=== PATIENT | male | born 1955 | race Caucasian/White ===

== ENCOUNTER 2020-06-09 12:22 | Inpatient (IN) | payer BC ==
[2020-06-09] MEDS ORDERED: ACETAMINOPHEN 500 MG TAB ONE (12:58)
[2020-06-09] MEDS ORDERED: METHYLPREDNISOLONE 125 MG INJ ONE (12:58)
[2020-06-09] MEDS ORDERED: CEFTRIAXONE/SWI 1gm 1 GM/10 ML SYR ONE (12:59)
[2020-06-09] MEDS ORDERED: NA CHLORIDE 0.9% 3,000 ML ONE (12:59)
[2020-06-09 13:03] LABS: Absolute Lymphocytes (CBC) 0.9 K/uL (0.7-4.9); Hematocrit 39.3 % (39.6-49.0); Lymphocytes % 7.6 % (15.3-44.8); MPV 8.6 fL (7.6-11.3); RBC Red Blood Cell Count 4.47 M/uL (4.33-5.43)
[2020-06-09 13:06] LABS: Protime INR 1.26
[2020-06-09 13:20] LABS: Arterial Blood Carboxyhemoglob 1.5 % (0-1.5); Blood Gas Oxyhemoglobin 91.5 % (94-97); Blood O2 Saturation 93.8 % (92-98.5)
[2020-06-09 13:25] LABS: ALT/SGPT 78 U/L (12-78); AST/SGOT 51 U/L (15-37); Albumin 2.6 g/dL (3.4-5.0); Alkaline Phosphatase 86 U/L (45-117); Amylase 35 U/L (25-115); BUN Blood Urea Nitrogen 16 mg/dL (7-18); Bicarbonate 26 mmol/L (21-32); Bilirubin Direct 0.4 mg/dL (0-0.2); Bilirubin Total 0.9 mg/dL (0.2-1.0); Blood Morphology Comment NOT SEEN (NOT SEEN); CKMB Creatine Kinase MB < 1.0 ng/mL (0.3-3.6); Creatine Phosphokinase 91 U/L (39-308); Glucose Level 322 mg/dL (74-106); Lipase 51 U/L (73-393); Platelet Estimate ADEQ; Potassium 3.8 mmol/L (3.5-5.1); Protein, Total 7.1 g/dL (6.4-8.2); Sodium Level 134 mmol/L (136-145); Troponin (Emerg Dept Use Only) < 0.02 ng/mL (0.0-0.045); White Blood Cell Scan OK (OK)
--- NOTE | 2020-06-09 13:40 | RAD REPORT ---
EXAM DESCRIPTION: [place] Single View06/09/2020 1:26 pm CLINICAL HISTORY: Shortness of breath COMPARISON: none FINDINGS: Moderate bilateral pulmonary opacities. The heart is borderline enlarged IMPRESSION: Moderate bilateral pulmonary opacities probably pneumonia
--- NOTE | 2020-06-09 16:13 | ER ---
Nurse's Notes [facility] Name: Alberto Vega Age: 64 yrs Sex: Male : 1955 Arrival Date: 06/09/2020 Time: 12:24 Bed 3 Private MD: Diagnosis: Pneumonia, unspecified organism;Shortness of breath;Acute respiratory failure with hypoxia Presentation: 06/09 12:29 Chief complaint: EMS states: "COVID + X 1 week. reporting increased shortness of jd3 breath. 46% oxygen on room air and up to upper 80's and low 90's with the non-re breather. diminished lung sounds SABINO. he is also breathing in the upped 20's to 30's as far as respiratory rate. 2 IV attempts that didn't stay.". Coronavirus screen: cough unrelated to allergies, difficulty breathing, fever, Client presents with at least one sign or symptom that may indicate coronavirus-19. Standard/surgical mask placed on the client. Provider contacted for isolation considerations. Ebola Screen: Patient negative for fever greater than or equal to 101.5 degrees Fahrenheit, and additional compatible Ebola Virus Disease symptoms. Initial Sepsis Screen: Does the patient meet any 2 criteria? RR > 20 per min. HR > 90 bpm. Yes Does the patient have a suspected source of infection? Yes: Productive cough/pneumonia. Risk Assessment: Do you want to hurt yourself or someone else? Patient reports no desire to harm self or others. Onset of symptoms was June 09, 2020. 12:29 Method Of Arrival: EMS: [facility] jd3 12:29 Acuity: LUZ 2 jd3 Historical: - Allergies: 12:36 No Known Allergies; jd3 - PMHx: 14:24 cancer; High Cholesterol; jd3 - PSHx: 12:36 None; jd3 - Immunization history:: Adult Immunizations up to date. - Social history:: Smoking status: Patient/guardian denies using tobacco, the patient reports quitting approximately 10 years ago. Screenin:35 Abuse screen: Denies threats or abuse. Nutritional screening: No deficits noted. jd3 Tuberculosis screening:. Fall Risk Ambulatory Aid- None/Bed Rest/Nurse Assist (0 pts). Gait- Normal/Bed Rest/Wheelchair (0 pts) Mental Status- Oriented to own ability (0 pts). Total Forbes Fall Scale indicates No Risk (0-24 pts). Assessment: 12:34 General: Appears uncomfortable, Behavior is calm, cooperative, appropriate for age. jd3 Pain: Denies pain. Neuro: Level of Consciousness is awake, alert, obeys commands, Oriented to person, place, time, situation. Cardiovascular: Denies chest pain, Heart tones present Capillary refill < 3 seconds Patient's skin is warm and dry. Respiratory: Reports shortness of breath at rest cough that is non-productive, persistent Airway is patent Respiratory effort is labored, shallow, Respiratory pattern is symmetrical, tachypnea Breath sounds are diminished bilaterally. GI: No signs and/or symptoms were reported involving the gastrointestinal system. : No signs and/or symptoms were reported regarding the genitourinary system. EENT: No signs and/or symptoms were reported regarding the EENT system. Derm: Skin is intact, Skin is dry, Skin is normal, Skin temperature is warm. Musculoskeletal: Circulation, motion, and sensation intact. Range of motion: intact in all extremities. 13:11 Reassessment: No changes from previously documented assessment. Patient and/or family jd3 updated on plan of care and expected duration. Pain level reassessed. 14:10 Reassessment: Patient and/or family updated on plan of care and expected duration. Pain jd3 level reassessed. Patient states feeling better. Pain: Denies pain. Respiratory: Airway is patent Respiratory effort is even, unlabored, Respiratory pattern is symmetrical, tachypnea. 15:52 Reassessment: No changes from previously documented assessment. Patient and/or family jd3 updated on plan of care and expected duration. Pain level reassessed. Patient states feeling better. 17:21 Reassessment: No changes from previously documented assessment. Patient and/or family jd3 updated on plan of care and expected duration. Pain level reassessed. Patient denies pain at this time. Respiratory: Airway is patent Respiratory effort is unlabored, relaxed, Respiratory pattern is symmetrical, tachypnea. 18:23 Reassessment: Patient appears in no apparent distress at this time. No changes from jd3 previously documented assessment. Patient and/or family updated on plan of care and expected duration. Pain level reassessed. report given to Paula SCHULTE. Vital Signs: 12:33 BP 145 / 71; Pulse 109; Resp 28 S; Temp 103.1(O); Pulse Ox 94% on Non-rebreather mask; jd3 Weight 90.72 kg (R); Height 5 ft. 8 in. (172.72 cm) (R); Pain 0/10; 13:11 BP 124 / 73; Pulse 98; Resp 23 S; Pulse Ox 95% on BiPAP; jd3 14:10 BP 126 / 76; Pulse 80; Resp 25 S; Pulse Ox 98% on BiPAP; jd3 15:51 Pulse 76; Resp 27 S; Temp 97.7(O); Pulse Ox 96% on BiPAP; jd3 17:19 BP 113 / 68; Pulse 76; Resp 28 S; Pulse Ox 95% on BiPAP; jd3 18:25 BP 112 / 67; Pulse 76; Resp 25 S; Pulse Ox 96% on BiPAP; jd3 12:33 Body Mass Index 30.41 (90.72 kg, 172.72 cm) jd3 ED Course: 12:24 Patient arrived in ED. bd 12:27 Gary Crawford MD is Attending Physician. kdr 12:29 Nir Conklin RN is Primary Nurse. jd3 12:33 Triage completed. jd3 12:34 Arm band placed on. EKG completed in triage. Results shown to MD. jd3 12:36 Patient has correct armband on for positive identification. Placed in gown. Bed in low jd3 position. Call light in reach. Side rails up X2. telemetry monitor on. Pulse ox on. NIBP on. 12:45 pt contact number [phone]. bd 13:00 Inserted saline lock: 18 gauge in left antecubital area, using aseptic technique. Blood jd3 collected. placed by [employer]. 13:26 Chest Single View XRAY In Process Unspecified. EDMS 14:45 Basic Metabolic Panel Sent. iw 14:45 Amylase, Serum Sent. iw 16:10 Stan Leonard is Hospitalizing Provider. kdr 16:34 CT Chest For PE Angio In Process Unspecified. EDMS 18:24 No provider procedures requiring assistance completed. Patient admitted, IV remains in jd3 place. Administered Medications: 13:09 Drug: Tylenol 1000 mg Route: PO; jd3 14:00 Follow up: Response: No adverse reaction jd3 13:10 Drug: NS 0.9% (30 ml/kg) 30 ml/kg Route: IV; Rate: bolus; Site: left antecubital; jd3 14:00 Follow up: Response: No adverse reaction; IV Status: Completed infusion jd3 13:10 Drug: Rocephin 1 grams Route: IV; Rate: calculated rate; Site: left antecubital; jd3 14:00 Follow up: Response: No adverse reaction; IV Status: Completed infusion jd3 13:10 Drug: SOLU-Medrol 125 mg Route: IVP; Site: left antecubital; jd3 14:00 Follow up: Response: No adverse reaction jd3 Outcome: 16:12 Decision to Hospitalize by Provider. kdr 18:24 Admitted to Med/surg accompanied by tech, room ICU 6, with oxygen, with chart, Report jd3 called to Paula SCHULTE 18:24 Condition: stable 18:24 Instructed on the need for admit, Demonstrated understanding of instructions. 18:42 Patient left the ED. jd3 Signatures: Dispatcher [employer] EDMS Courtney Connor Kevin, MD MD kdr Imelda Burgos, ERIS RN iw Nir Conklin RN RN jning Corrections: (The following items were deleted from the chart) 14:24 12:36 PMHx: None; jd3 jd3
--- NOTE | 2020-06-09 16:13 | EDPHYS ---
Physician Documentation [facility] Name: Alberto Vega Age: 64 yrs Sex: Male : 1955 Arrival Date: 06/09/2020 Time: 12:24 Bed 3 Private MD: ED Physician Gary Crawford HPI: 06/09 18:14 This 64 yrs old Male presents to ER via EMS with complaints of short of kdr breath and hypoxia. 18:14 The patient has shortness of breath at rest. Onset: The symptoms/episode began/occurred kdr gradually, 1 week(s) ago. Duration: The symptoms are continuous, and are steadily getting worse. The patient's shortness of breath is aggravated by coughing, exertion, light activity. 06/10 08:04 The patient has not experienced similar symptoms in the past. The patient has been kdr recently seen by a physician: the patient's primary care provider. The patient was diagnosed with COVID about a week ago and has in the last few days become increasingly SOB. His had bought a POx device and he claims that prior to EMS arrival, it was reading 37%. EMS reported initial sats in the 50's that improved with oxygen and the patient presented initially with sats in the 80-'s that improved with BiPAP to the 90's. The patient appeared mildly dyspneic on arrival. Historical: - Allergies: 06/09 12:36 No Known Allergies; jd3 - PMHx: 14:24 cancer; High Cholesterol; jd3 - PSHx: 12:36 None; jd3 - Immunization history:: Adult Immunizations up to date. - Social history:: Smoking status: Patient/guardian denies using tobacco, the patient reports quitting approximately 10 years ago. ROS: 06/10 08:04 Constitutional: Negative for fever, chills, and weight loss, Eyes: Negative for injury, kdr pain, redness, and discharge, ENT: Negative for injury, pain, and discharge, Neck: Negative for injury, pain, and swelling, Cardiovascular: Negative for chest pain, palpitations, and edema, Abdomen/GI: Negative for abdominal pain, nausea, vomiting, diarrhea, and constipation, Back: Negative for injury and pain, : Negative for injury, bleeding, discharge, and swelling, MS/Extremity: Negative for injury and deformity, Skin: Negative for injury, rash, and discoloration, Neuro: Negative for headache, weakness, numbness, tingling, and seizure activity. Psych: Negative for depression, anxiety, suicide ideation, homicidal ideation, and hallucinations, Allergy/Immunology: Negative for hives, rash, and allergies, Endocrine: Negative for neck swelling, polydipsia, polyuria, polyphagia, and marked weight changes, Hematologic/Lymphatic: Negative for swollen nodes, abnormal bleeding, and unusual bruising. Respiratory: Positive for dyspnea on exertion, shortness of breath, at rest. Negative for hemoptysis, orthopnea, pleurisy, wheezing. Exam: 06/09 15:52 ECG was reviewed by the Attending Physician. kdr 06/10 08:04 Constitutional: This is a well developed, well nourished patient who is awake, alert, kdr and in mild to moderate distress. Head/Face: Normocephalic, atraumatic. Eyes: Pupils equal round and reactive to light, extra-ocular motions intact. Lids and lashes normal. Conjunctiva and sclera are non-icteric and not injected. Cornea within normal limits. Periorbital areas with no swelling, redness, or edema. Neck: Trachea midline, no thyromegaly or masses palpated, and no cervical lymphadenopathy. Supple, full range of motion without nuchal rigidity, or vertebral point tenderness. No Meningismus. Chest/axilla: Normal chest wall appearance and motion. Nontender with no deformity. No lesions are appreciated. Cardiovascular: Regular rate and rhythm with a normal S1 and S2. No gallops, murmurs, or rubs. Normal PMI, no JVD. No pulse deficits. Respiratory: Lungs have equal breath sounds bilaterally, clear to auscultation and percussion. No rales, rhonchi or wheezes noted. MIld increased work of breathing but no retractions or nasal flaring. Abdomen/GI: Soft, non-tender, with normal bowel sounds. No distension or tympany. No guarding or rebound. No evidence of tenderness throughout. Back: No spinal tenderness. No costovertebral tenderness. Full range of motion. Skin: Warm, dry with normal turgor. Normal color with no rashes, no lesions, and no evidence of cellulitis. MS/ Extremity: Pulses equal, no cyanosis. Neurovascular intact. Full, normal range of motion. Neuro: Awake and alert, GCS 15, oriented to person, place, time, and situation. Cranial nerves II-XII grossly intact. Motor strength 5/5 in all extremities. Sensory grossly intact. Cerebellar exam normal. Normal gait. Psych: Awake, alert, with orientation to person, place and time. Behavior, mood, and affect are within normal limits. Vital Signs: 06/09 12:33 BP 145 / 71; Pulse 109; Resp 28 S; Temp 103.1(O); Pulse Ox 94% on Non-rebreather mask; jd3 Weight 90.72 kg (R); Height 5 ft. 8 in. (172.72 cm) (R); Pain 0/10; 13:11 BP 124 / 73; Pulse 98; Resp 23 S; Pulse Ox 95% on BiPAP; jd3 14:10 BP 126 / 76; Pulse 80; Resp 25 S; Pulse Ox 98% on BiPAP; jd3 15:51 Pulse 76; Resp 27 S; Temp 97.7(O); Pulse Ox 96% on BiPAP; jd3 17:19 BP 113 / 68; Pulse 76; Resp 28 S; Pulse Ox 95% on BiPAP; jd3 18:25 BP 112 / 67; Pulse 76; Resp 25 S; Pulse Ox 96% on BiPAP; jd3 12:33 Body Mass Index 30.41 (90.72 kg, 172.72 cm) jd3 MDM: 16:12 Patient medically screened. kdr 06/10 08:04 Differential diagnosis: Anxiety Reaction asthma, Bronchitis CHF exacerbation. Data kdr reviewed: vital signs, nurses notes, lab test result(s), radiologic studies. Counseling: I had a detailed discussion with the patient and/or guardian regarding: the historical points, exam findings, and any diagnostic results supporting the discharge/admit diagnosis, lab results, radiology results, the need for further work-up and treatment in the hospital. 06/09 12:34 Order name: Amylase, Serum kdr 06/09 12:34 Order name: Basic Metabolic Panel kdr 06/09 12:34 Order name: Blood Culture Adult (2) kdr 06/09 12:34 Order name: CBC with Diff; Complete Time: 14:57 kdr 06/09 12:34 Order name: Ckmb; Complete Time: 14:57 kdr 06/09 12:34 Order name: CPK; Complete Time: 14:57 kdr 02 12:34 Order name: Lactate; Complete Time: 14:57 kdr 02 12:34 Order name: LFT's; Complete Time: 14:57 kdr 02 12:34 Order name: Lipase; Complete Time: 14:57 kdr 02 12:34 Order name: Procalcitonin; Complete Time: 14:57 kdr 02 12:34 Order name: Protime (+inr); Complete Time: 14:57 kdr 06/09 12:34 Order name: Ptt, Activated; Complete Time: 14:57 kdr 02 12:34 Order name: Troponin (emerg Dept Use Only); Complete Time: 14:57 kdr 02 12:34 Order name: Urine Microscopic Only kdr 06/09 12:34 Order name: Chest Single View XRAY; Complete Time: 14:57 kdr 06/09 12:34 Order name: Accucheck; Complete Time: 12:37 kdr 06/09 12:34 Order name: Cardiac monitoring; Complete Time: 12:37 kdr 06/09 12:34 Order name: EKG - Nurse/Tech; Complete Time: 12:38 kdr 06/09 12:34 Order name: BIPAP kdr 06/09 12:34 Order name: Amylase; Complete Time: 14:57 EDMS 06/09 12:34 Order name: Basic Metabolic Panel; Complete Time: 14:57 EDMS 06/09 12:36 Order name: ABG; Complete Time: 14:57 kdr 06/09 13:03 Order name: Glucose, Ancillary Testing; Complete Time: 14:57 EDMS 06/09 13:05 Order name: CBC Smear Scan; Complete Time: 14:57 EDMS 06/09 16:10 Order name: CT Chest For PE Angio kdr 06/09 16:20 Order name: Lactate Sepsis 2 HR Follow-up EDMS 06/09 12:34 Order name: IV Saline Lock - Large Bore; Complete Time: 13:10 kdr 06/09 12:34 Order name: Labs collected and sent; Complete Time: 13:10 kdr 06/09 12:34 Order name: O2 Per Protocol; Complete Time: 12:38 kdr 06/09 12:34 Order name: O2 Sat Monitoring; Complete Time: 12:38 kdr EC/10 15:52 Rate is 100 beats/min. Rhythm is regular, Normal Sinus Rhythm with No ectopy. QRS Butler kdr is Normal. LA interval is normal. QRS interval is normal. QT interval is normal. Clinical impression: NSR w/ Non-specific ST/T Changes. Administered Medications: 13:09 Drug: Tylenol 1000 mg Route: PO; jd3 14:00 Follow up: Response: No adverse reaction jd3 13:10 Drug: NS 0.9% (30 ml/kg) 30 ml/kg Route: IV; Rate: bolus; Site: left antecubital; jd3 14:00 Follow up: Response: No adverse reaction; IV Status: Completed infusion jd3 13:10 Drug: Rocephin 1 grams Route: IV; Rate: calculated rate; Site: left antecubital; jd3 14:00 Follow up: Response: No adverse reaction; IV Status: Completed infusion jd3 13:10 Drug: SOLU-Medrol 125 mg Route: IVP; Site: left antecubital; jd3 14:00 Follow up: Response: No adverse reaction jd3 Disposition: 06/09/20 16:12 Hospitalization ordered by Stan Leonard for Inpatient Admission. Preliminary diagnosis are Pneumonia, unspecified organism, Shortness of breath, Acute respiratory failure with hypoxia. - Bed requested for Intensive Care Unit. - Status is Inpatient Admission. jd3 - Condition is Fair. - Problem is new. - Symptoms have improved. Signatures: Dispatcher [employer] Nieves Garibay RN RN Gary Clark MD MD kdr Davies, Jonathon, RN RN jd3 Corrections: (The following items were deleted from the chart) 14:24 12:36 PMHx: None; jd3 jd3 17:46 16:12 Hospitalization Ordered by Stan Leonard for Inpatient Admission. Preliminary diagnosis is Pneumonia, unspecified organism; Shortness of breath; Acute respiratory failure with hypoxia. Bed requested for Telemetry/MedSurg (Inpatient). Status is Inpatient Admission. Condition is Fair. Problem is new. Symptoms have improved. kdr 18:42 17:46 06/09/2020 16:12 Hospitalization Ordered by Stan Leonard for Inpatient jd3 Admission. Preliminary diagnosis is Pneumonia, unspecified organism; Shortness of breath; Acute respiratory failure with hypoxia. Bed requested for Intensive Care Unit. Status is Inpatient Admission. Condition is Fair. Problem is new. Symptoms have improved. dw
--- NOTE | 2020-06-09 16:46 | RAD REPORT ---
EXAM DESCRIPTION: CT - Chest For Pe Angio - 06/09/2020 4:35 pm CLINICAL HISTORY: cough COMPARISON: X-ray today's date TECHNIQUE: Dynamically enhanced axial 3 mm thick images of the chest were obtained during administra tion of <100> mL Isovue 370 IV contrast. Coronal and oblique reconstruction images were generated and reviewed. Exam utilizes a protocol for optimal evaluation of pulmonary arterial tree. Maximum intensity projections 3D imaging was utilized All CT scans are performed using dose optimization technique as appropriate and may include automated exposure control or mA/KV adjustment according to patient size. FINDINGS: A pulmonary embolus is not seen. A thoracic aortic aneurysm is not noted. A pleural effusion is not seen. A pericardial effusion is not seen. Moderate to marked ground-glass opacities within predominantly lower lobes. Fatty liver IMPRESSION: Negative for a pulmonary embolism. [id number] bilateral ground-glass opacities can be seen with Covid pneumonia
--- NOTE | 2020-06-09 18:04 | P.HP ---
Certification for Inpatient Patient admitted to: Inpatient With expected LOS: >2 Midnights Practitioner: I am a practitioner with admitting privileges, knowledge of patient current condition, hospital course, and medical plan of care. Services: Services provided to patient in accordance with Admission requirements found in Title 42 Section 412.3 of the Code of Federal Regulations Patient History Date of Service: 06/09/20 Reason for admission: Shortness of breath History of Present Illness: 64-year-old gentleman with a history of hyperlipidemia was brought to the emergency department due to acute shortness of breath and low oxygen saturation. According to reports EMS found him with an oxygen saturation of 50%. They placed 100% non-rebreather mask on him and brought him to the ED. His chest x- ray and CTA thorax done in the emergency department demonstrate bilateral infiltrates consistent with COVID pneumonia. Patient tested positive for COVID 1 week ago. Patient placed on BiPAP therapy which improved his oxygen saturation to the 90s. He had mildly elevated lactic acid which resolved with IV hydration. Patient is admitted for further management of COVID pneumonia. - Past Medical/Surgical History Diabetic: No -: Hyperlipidemia -: None - Family History Mother -: Lung disease (Emphysema) - Social History Smoking Status: Former smoker Alcohol use: Yes CD- Drugs: No Place of Residence: Home Review of Systems Other: Patient denied any fever, he denied any chest pain, he denied any nausea or vomiting or abdominal pain or diarrhea. Except as documented, all other systems reviewed and negative. Physical Examination - Physical Exam General: Alert, In no apparent distress, Oriented x3 HEENT: Normocephalic, PERRLA, EOMI, Sclerae nonicteric Neck: Supple, JVD not distended Respiratory: Normal air movement, Crackles/rales (Bilateral) Cardiovascular: No edema, Regular rate/rhythm, Normal S1 S2 Gastrointestinal: Soft and benign, Non-distended, No tenderness Musculoskeletal: No swelling, No tenderness Integumentary: No rashes, No erythema Neurological: Normal speech, Normal strength at 5/5 x4 extr, Cranial nerves 3-12 intact - Studies Laboratory Data (last 24 hrs) 06/09/20 12:48: PT 14.5 H, INR 1.26, APTT 29.1 06/09/20 12:48: WBC 11.30 H, Hgb 13.2 L, Hct 39.3 L, Plt Count 239 06/09/20 12:48: Sodium 134 L, Potassium 3.8, BUN 16, Creatinine 1.10, Glucose 322 H, Total Bilirubin 0.9, AST 51 H, ALT 78, Alkaline Phosphatase 86, Amylase 35, Lipase 51 L Assessment and Plan - Problems (Diagnosis) (1) Pneumonia due to COVID-19 virus Current Visit: Yes Status: Acute (2) Acute respiratory failure with hypoxia Current Visit: Yes Status: Acute (3) Hyperlipidemia Current Visit: Yes Status: Acute (4) Hyperglycemia Current Visit: Yes Status: Acute - Plan Admit to the medical floor. Start IV Solu-Medrol BiPAP and high-flow oxygen as needed. Vitamin-D, vitamin-C, zinc and thiamine supplementation. Eliquis for thromboembolism prophylaxis. Transfuse 1 unit convalescent plasma. Consult to pulmonary Titrate oxygen Check hemoglobin A1c Glucose monitoring. Insulin sliding scale. - Advance Directives Does patient have a Living Will: No Does patient have a Durable POA for Healthcare: No
[2020-06-09] MEDS ORDERED: ONDANSETRON 4 MG/2 ML VIAL IV PRN (18:29)
[2020-06-09] MEDS ORDERED: DIPHENHYDRAMINE 50 MG/ML VIAL IV ONE (18:29)
[2020-06-09] MEDS ORDERED: DIPHENHYDRAMINE 25 MG TAB/CAP PO ONE (18:29)
[2020-06-09] MEDS ORDERED: NA CHLORIDE 0.9% 250 ML IV ONE (18:29)
[2020-06-09] MEDS: METHYLPREDNISOLONE 125 MG INJ IV SCH (20:11)
[2020-06-09] MEDS: FAMOTIDINE 20 MG/2 ML VIAL IV SCH (20:11)
[2020-06-09] MEDS: APIXABAN 5 MG TABLET PO SCH (20:12)
[2020-06-10 05:40] LABS: Protime INR 1.33
[2020-06-10 05:55] LABS: Absolute Lymphocytes (CBC) 1.1 K/uL (0.7-4.9); Basophils % 0.1 % (0-1.3); Hematocrit 38.8 % (39.6-49.0); Lymphocytes % 11.9 % (15.3-44.8); MPV 8.4 fL (7.6-11.3); RBC Red Blood Cell Count 4.35 M/uL (4.33-5.43)
[2020-06-10 06:04] LABS: ALT/SGPT 68 U/L (12-78); AST/SGOT 39 U/L (15-37); Albumin 2.3 g/dL (3.4-5.0); Alkaline Phosphatase 85 U/L (45-117); BUN Blood Urea Nitrogen 16 mg/dL (7-18); Bicarbonate 24 mmol/L (21-32); Bilirubin Total 0.4 mg/dL (0.2-1.0); Ferritin 1716.7 ng/mL (26-388); Glucose Level 223 mg/dL (74-106); HDL Cholesterol 40 mg/dL (40-60); LDL Cholesterol, Calculated 62 (<130); Magnesium 2.4 mg/dL (1.8-2.4); Phosphorus 2.2 mg/dL (2.5-4.9); Protein, Total 6.9 g/dL (6.4-8.2); Sodium Level 140 mmol/L (136-145)
--- NOTE | 2020-06-10 08:25 | P.CNS ---
Date of Consult: 06/10/20 Reason for Consult: Respiratory failure from dorman virus Chief Complaint: Shortness of breath History of Present Illness: Patient is 64 years of age admitted with worsening shortness of breath is been sick for about 1 week for with dorman virus his oxygen requirements have been declining is feeling a little better Allergies No Known Allergies Allergy (Verified 06/09/20 18:28) Home Medications: Finasteride [Proscar] 5 mg PO DAILY 06/09/20 Rosuvastatin [Crestor] 10 mg PO BEDTIME 06/09/20 - Past Medical/Surgical History Diabetic: No -: Hyperlipidemia -: prostate nonaggressive -: neck surgery - Family History Mother Medical History: Lung disease Father Medical History: Cancer, Liver disease - Social History Alcohol use: Yes CD- Drugs: No Caffeine use: Yes Place of Residence: Home Review of Systems General: Weakness Respiratory: Cough, Shortness of Breath Physical Examination Temp Pulse Resp BP Pulse Ox 97.2 F 65 30 H 111/63 90 L 06/10/20 04:00 06/10/20 06:00 06/10/20 06:00 06/10/20 06:00 06/10/20 06:00 Laboratory Data (last 24 hrs) 06/09/20 12:48: PT 14.5 H, INR 1.26, APTT 29.1 06/09/20 12:48: WBC 11.30 H, Hgb 13.2 L, Hct 39.3 L, Plt Count 239 06/09/20 12:48: Sodium 134 L, Potassium 3.8, BUN 16, Creatinine 1.10, Glucose 322 H, Total Bilirubin 0.9, AST 51 H, ALT 78, Alkaline Phosphatase 86, Amylase 35, Lipase 51 L - Problems (1) Pneumonia due to COVID-19 virus Current Visit: Yes Status: Acute Plan: Patient is 64 years of age admitted with respiratory failure secondary to dorman virus labs all reviewed start patient on ivermectin continue to wean down on the oxygen prone position ventilation continue with steroid multi vitamin support
[2020-06-10] MEDS: METHYLPREDNISOLONE 125 MG INJ IV SCH ×2 (08:38→20:16)
[2020-06-10] MEDS: VITAMIN D 1000 UNIT TAB PO SCH (08:39)
[2020-06-10] MEDS: ASCORBIC ACID 500 MG TABLET PO SCH ×3 (08:39→20:16)
[2020-06-10] MEDS: ZINC SULFATE 220 MG CAP PO SCH (08:40)
[2020-06-10] MEDS: THIAMINE HCL 100 MG TABLET PO SCH ×2 (08:40→20:16)
[2020-06-10] MEDS: FAMOTIDINE 20 MG/2 ML VIAL IV SCH ×2 (08:41→20:17)
[2020-06-10] MEDS: APIXABAN 5 MG TABLET PO SCH ×2 (08:41→20:16)
[2020-06-10] MEDS: POTASS/SODIUM PHOSPHATE 1 PKT POWD.PACK PO SCH ×3 (08:41→11:07)
[2020-06-10] MEDS: IVERMECTIN 3 MG TABLET PO SCH (09:00)
--- NOTE | 2020-06-10 12:34 | P.PN ---
Subjective Date of Service: 06/10/20 Chief Complaint: Shortness of breath Patient currently on alternate high-flow oxygen and BiPAP Status post Ivermectin. Physical Examination - Vital Signs Temperature: 97.2 F Blood Pressure: 112/75 Pulse: 68 Respirations: 21 Pulse Ox (%): 89 - Physical Exam General: Alert, Oriented x3, Mild distress Neck: JVD not distended Cardiovascular: No edema, Regular rate/rhythm, Normal S1 S2 Gastrointestinal: Soft and benign, Non-distended Musculoskeletal: No swelling Integumentary: No rashes Neurological: Other (No focal motor deficit) - Studies Laboratory Data (last 24 hrs) 06/09/20 12:48: PT 14.5 H, INR 1.26, APTT 29.1 06/09/20 12:48: WBC 11.30 H, Hgb 13.2 L, Hct 39.3 L, Plt Count 239 06/09/20 12:48: Sodium 134 L, Potassium 3.8, BUN 16, Creatinine 1.10, Glucose 322 H, Total Bilirubin 0.9, AST 51 H, ALT 78, Alkaline Phosphatase 86, Amylase 35, Lipase 51 L Assessment And Plan - Current Problems (Diagnosis) (1) Pneumonia due to COVID-19 virus Current Visit: Yes Status: Acute (2) Acute respiratory failure with hypoxia Current Visit: Yes Status: Acute (3) Hyperlipidemia Current Visit: Yes Status: Acute (4) Hyperglycemia Current Visit: Yes Status: Acute - Plan Continue IV Solu-Medrol BiPAP and high-flow oxygen as needed. Vitamin-D, vitamin-C, zinc and thiamine supplementation. Continue Eliquis Status post 1 unit convalescent plasma. Pulmonary input appreciated. Titrate oxygen Check hemoglobin A1c Glucose monitoring. Insulin sliding scale.
[2020-06-10] MEDS ORDERED: D50W 25 GM/50 ML SYRINGE IV PRN (18:44)
[2020-06-10] MEDS ORDERED: GLUCAGON 1 MG/VIAL IM PRN (18:44)
[2020-06-10] MEDS: INSULIN -REGULAR HUMAN 50 UNIT/0.5 ML ML SQ SCH (20:17)
[2020-06-11 06:30] LABS: BUN Blood Urea Nitrogen 26 mg/dL (7-18); Bicarbonate 29 mmol/L (21-32); Glucose Level 169 mg/dL (74-106); Phosphorus 3.3 mg/dL (2.5-4.9); Potassium 4.2 mmol/L (3.5-5.1); Sodium Level 145 mmol/L (136-145)
[2020-06-11 06:31] LABS: Ferritin 2156.5 ng/mL (26-388)
[2020-06-11] MEDS: VITAMIN D 1000 UNIT TAB PO SCH (08:17)
[2020-06-11] MEDS: ZINC SULFATE 220 MG CAP PO SCH (08:17)
[2020-06-11] MEDS: THIAMINE HCL 100 MG TABLET PO SCH ×2 (08:17→20:40)
[2020-06-11] MEDS: METHYLPREDNISOLONE 125 MG INJ IV SCH ×2 (08:18→20:39)
[2020-06-11] MEDS: ASCORBIC ACID 500 MG TABLET PO SCH ×3 (08:18→20:40)
[2020-06-11] MEDS: INSULIN -REGULAR HUMAN 50 UNIT/0.5 ML ML SQ SCH ×4 (08:18→20:38)
[2020-06-11] MEDS: FAMOTIDINE 20 MG/2 ML VIAL IV SCH ×2 (08:18→20:38)
[2020-06-11] MEDS: APIXABAN 5 MG TABLET PO SCH ×2 (09:11→20:37)
[2020-06-11] MEDS ORDERED: D50W 25 GM/50 ML VIAL IV PRN ×2 (12:00→15:43)
[2020-06-11] MEDS ORDERED: GLUCAGON 1 MG/VIAL IM PRN (15:33)
--- NOTE | 2020-06-11 15:34 | P.PN ---
Subjective Date of Service: 06/11/20 Chief Complaint: Respiratory failure Subjective: Improving (Patient is improving oxygen requirements are declined) Review of Systems General: Weakness Respiratory: Shortness of Breath Physical Examination - Vital Signs Temperature: 98.2 F Blood Pressure: 123/65 Pulse: 63 Respirations: 34 Pulse Ox (%): 96 Assessment & Plan - Problems (Diagnosis) (1) Pneumonia due to COVID-19 virus Current Visit: Yes Status: Acute Plan: Respiratory failure from dorman virus continue with present medications continue to titrate O2 down to sat of 88-90% at some NPH insulin
--- NOTE | 2020-06-11 17:03 | P.PN ---
Subjective Date of Service: 06/11/20 Chief Complaint: Respiratory failure Patient currently on alternate high-flow oxygen and BiPAP No major changes from yesterday. Physical Examination - Vital Signs Temperature: 97.9 F Blood Pressure: 127/78 Pulse: 61 Respirations: 25 Pulse Ox (%): 92 - Physical Exam General: Alert, In no apparent distress, Oriented x3 Neck: JVD not distended Cardiovascular: No edema, Regular rate/rhythm Gastrointestinal: Soft and benign, Non-distended Musculoskeletal: No swelling Integumentary: No rashes Neurological: Other (No focal motor deficit) Assessment And Plan - Current Problems (Diagnosis) (1) Pneumonia due to COVID-19 virus Current Visit: Yes Status: Acute (2) Acute respiratory failure with hypoxia Current Visit: Yes Status: Acute (3) Hyperlipidemia Current Visit: Yes Status: Acute (4) Hyperglycemia Current Visit: Yes Status: Acute - Plan Continue IV Solu-Medrol BiPAP and high-flow oxygen as needed. Vitamin-D, vitamin-C, zinc and thiamine supplementation. Continue Eliquis Status post 1 unit convalescent plasma. Pulmonary input appreciated. Titrate oxygen Insulin sliding scale for glucose management.
[2020-06-11] MEDS: INSULIN 70/30 100 UNITS/ML SQ SCH (17:28)
[2020-06-12] MEDS: INSULIN -REGULAR HUMAN 50 UNIT/0.5 ML ML SQ SCH ×4 (07:30→21:20)
[2020-06-12] MEDS: ASCORBIC ACID 500 MG TABLET PO SCH ×3 (08:52→21:19)
[2020-06-12] MEDS: THIAMINE HCL 100 MG TABLET PO SCH ×2 (08:52→21:19)
[2020-06-12] MEDS: VITAMIN D 1000 UNIT TAB PO SCH (08:52)
[2020-06-12] MEDS: METHYLPREDNISOLONE 125 MG INJ IV SCH ×2 (08:52→21:20)
[2020-06-12] MEDS: ZINC SULFATE 220 MG CAP PO SCH (08:53)
[2020-06-12] MEDS: APIXABAN 5 MG TABLET PO SCH ×2 (08:54→21:19)
[2020-06-12] MEDS: IVERMECTIN 3 MG TABLET PO SCH (08:54)
[2020-06-12] MEDS: FAMOTIDINE 20 MG/2 ML VIAL IV SCH ×2 (08:54→21:20)
[2020-06-12] MEDS: INSULIN 70/30 100 UNITS/ML SQ SCH ×2 (08:59→16:57)
--- NOTE | 2020-06-12 10:48 | P.PN ---
Subjective Date of Service: 06/12/20 Chief Complaint: Respiratory failure Patient remain on high-flow. Vitals stable. No major changes from yesterday. Physical Examination - Vital Signs Temperature: 98.2 F Blood Pressure: 120/81 Pulse: 74 Respirations: 27 Pulse Ox (%): 88 - Physical Exam General: Alert, In no apparent distress, Oriented x3 Neck: JVD not distended Cardiovascular: No edema, Regular rate/rhythm Gastrointestinal: Soft and benign, Non-distended Musculoskeletal: No swelling Integumentary: No rashes Neurological: Other (No focal motor deficits) Assessment And Plan - Current Problems (Diagnosis) (1) Pneumonia due to COVID-19 virus Current Visit: Yes Status: Acute (2) Acute respiratory failure with hypoxia Current Visit: Yes Status: Acute (3) Hyperlipidemia Current Visit: Yes Status: Acute (4) Hyperglycemia Current Visit: Yes Status: Acute - Plan Continue IV Solu-Medrol BiPAP and high-flow oxygen as needed. Vitamin-D, vitamin-C, zinc and thiamine supplementation. Continue Eliquis Status post 1 unit convalescent plasma. Pulmonary is following. Titrate oxygen Insulin sliding scale for glucose management.
[2020-06-13 05:11] LABS: Absolute Lymphocytes (CBC) 1.1 K/uL (0.7-4.9); Hematocrit 37.4 % (39.6-49.0); Lymphocytes % 8.9 % (15.3-44.8); MPV 8.5 fL (7.6-11.3); RBC Red Blood Cell Count 4.25 M/uL (4.33-5.43)
[2020-06-13 05:24] LABS: BUN Blood Urea Nitrogen 27 mg/dL (7-18); Bicarbonate 29 mmol/L (21-32); Glucose Level 126 mg/dL (74-106); Potassium 4.5 mmol/L (3.5-5.1); Sodium Level 144 mmol/L (136-145)
[2020-06-13 05:54] LABS: C-Reactive Protein 80.6 mg/L (<3.00); Ferritin 1575.8 ng/mL (26-388)
[2020-06-13] MEDS: INSULIN -REGULAR HUMAN 50 UNIT/0.5 ML ML SQ SCH ×4 (07:30→21:24)
[2020-06-13] MEDS: METHYLPREDNISOLONE 125 MG INJ IV SCH ×2 (07:46→21:25)
[2020-06-13] MEDS: ASCORBIC ACID 500 MG TABLET PO SCH ×3 (07:46→21:26)
[2020-06-13] MEDS: VITAMIN D 1000 UNIT TAB PO SCH (07:46)
[2020-06-13] MEDS: ZINC SULFATE 220 MG CAP PO SCH (07:46)
[2020-06-13] MEDS: FAMOTIDINE 20 MG/2 ML VIAL IV SCH (07:46)
[2020-06-13] MEDS: INSULIN 70/30 100 UNITS/ML SQ SCH ×2 (07:46→17:09)
[2020-06-13] MEDS: THIAMINE HCL 100 MG TABLET PO SCH ×2 (07:46→21:26)
[2020-06-13] MEDS: APIXABAN 5 MG TABLET PO SCH ×2 (08:22→21:26)
--- NOTE | 2020-06-13 10:31 | P.PN ---
Subjective Date of Service: 06/13/20 Chief Complaint: Respiratory failure Patient remain on high-flow. No new complain. Physical Examination - Vital Signs Temperature: 97.5 F Blood Pressure: 122/59 Pulse: 77 Respirations: 17 Pulse Ox (%): 83 - Physical Exam General: Alert, In no apparent distress Neck: JVD not distended Cardiovascular: No edema, Regular rate/rhythm Gastrointestinal: Soft and benign, Non-distended Musculoskeletal: No swelling Integumentary: No rashes Neurological: Other (No focal motor deficit.) Assessment And Plan - Current Problems (Diagnosis) (1) Pneumonia due to COVID-19 virus Current Visit: Yes Status: Acute (2) Acute respiratory failure with hypoxia Current Visit: Yes Status: Acute (3) Hyperlipidemia Current Visit: Yes Status: Acute (4) Hyperglycemia Current Visit: Yes Status: Acute - Plan Continue IV Solu-Medrol BiPAP and high-flow oxygen as needed. Vitamin-D, vitamin-C, zinc and thiamine supplementation. Continue Eliquis Status post 1 unit convalescent plasma. Insulin sliding scale for glucose management. Blood glucose readings within acceptable range.
--- NOTE | 2020-06-13 11:08 | P.PN ---
Subjective Date of Service: 06/13/20 Chief Complaint: Respiratory failure Condition stable will continues to remain hypoxic Review of Systems General: Weakness Respiratory: Shortness of Breath Physical Examination - Vital Signs Temperature: 97.5 F Blood Pressure: 122/59 Pulse: 77 Respirations: 17 Pulse Ox (%): 83 Assessment & Plan - Problems (Diagnosis) (1) Pneumonia due to COVID-19 virus Current Visit: Yes Status: Acute Plan: Respiratory failure continue to wean down on the oxygen blood sugars controlled no change in treatment labs reviewed
[2020-06-13] MEDS ORDERED: Remdesivir 200 MG in NA CHLORIDE 0.9% 250 ML IV ONE (14:00)
[2020-06-13] MEDS: FAMOTIDINE 20 MG TAB PO SCH (21:26)
[2020-06-14 05:43] LABS: ALT/SGPT 77 U/L (12-78); AST/SGOT 46 U/L (15-37); Alkaline Phosphatase 110 U/L (45-117); Bilirubin Direct 0.3 mg/dL (0-0.2); Bilirubin Total 0.8 mg/dL (0.2-1.0); Ferritin 1767.3 ng/mL (26-388); Protein, Total 6.1 g/dL (6.4-8.2)
[2020-06-14] MEDS: INSULIN -REGULAR HUMAN 50 UNIT/0.5 ML ML SQ SCH ×4 (07:30→20:23)
[2020-06-14] MEDS: ASCORBIC ACID 500 MG TABLET PO SCH ×3 (09:32→20:23)
[2020-06-14] MEDS: THIAMINE HCL 100 MG TABLET PO SCH ×2 (09:32→20:23)
[2020-06-14] MEDS: VITAMIN D 1000 UNIT TAB PO SCH (09:32)
[2020-06-14] MEDS: APIXABAN 5 MG TABLET PO SCH ×2 (09:33→20:23)
[2020-06-14] MEDS: ZINC SULFATE 220 MG CAP PO SCH (09:33)
[2020-06-14] MEDS: INSULIN 70/30 100 UNITS/ML SQ SCH ×2 (09:33→16:42)
[2020-06-14] MEDS: FAMOTIDINE 20 MG TAB PO SCH ×2 (09:33→20:23)
[2020-06-14] MEDS: METHYLPREDNISOLONE 125 MG INJ IV SCH ×2 (09:34→20:22)
--- NOTE | 2020-06-14 12:02 | P.PN ---
Subjective Date of Service: 06/14/20 Chief Complaint: Respiratory failure Patient remain on high-flow. No new complain. No major changes from yesterday. Physical Examination - Vital Signs Temperature: 97 F Blood Pressure: 127/69 Pulse: 70 Respirations: 23 Pulse Ox (%): 87 - Physical Exam General: Alert, In no apparent distress Neck: JVD not distended Respiratory: Other (Nonlabored breathing) Cardiovascular: Regular rate/rhythm, Normal S1 S2 Gastrointestinal: Soft and benign, Non-distended Musculoskeletal: No swelling Integumentary: No rashes Neurological: Other (No focal motor deficit.) Assessment And Plan - Current Problems (Diagnosis) (1) Pneumonia due to COVID-19 virus Current Visit: Yes Status: Acute (2) Acute respiratory failure with hypoxia Current Visit: Yes Status: Acute (3) Hyperlipidemia Current Visit: Yes Status: Acute (4) Hyperglycemia Current Visit: Yes Status: Acute (5) BPH (benign prostatic hyperplasia) Current Visit: Yes Status: Acute - Plan Continue IV Solu-Medrol BiPAP and high-flow oxygen as needed. Patient started on Remdesivir Vitamin-D, vitamin-C, zinc and thiamine supplementation. Continue Eliquis Status post 1 unit convalescent plasma. Insulin sliding scale for glucose management. Blood glucose readings within acceptable range. Continue Proscar.
[2020-06-14] MEDS: Remdesivir 100 MG in NA CHLORIDE 0.9% 250 ML IV SCH (14:03)
[2020-06-14] MEDS: FINASTERIDE 5 MG TAB PO SCH (14:35)
--- NOTE | 2020-06-14 15:49 | P.PN ---
Subjective Date of Service: 06/14/20 Chief Complaint: Respiratory failure Feeling better . O2 requiements declining Physical Examination - Vital Signs Temperature: 97 F Blood Pressure: 120/70 Pulse: 73 Respirations: 25 Pulse Ox (%): 87 - Studies Microbiology Data (last 24 hrs): 06/09/20 12:48 Blood - Blood Aerobic Blood Culture - Final No growth in 5 days. 06/09/20 12:48 Blood - Blood Anaerobic Blood Culture - Final No growth in 5 days. 06/09/20 12:50 Blood - Blood Aerobic Blood Culture - Final No growth in 5 days. 06/09/20 12:50 Blood - Blood Anaerobic Blood Culture - Final No growth in 5 days. Assessment & Plan - Problems (Diagnosis) (1) Pneumonia due to COVID-19 virus Current Visit: Yes Status: Acute Plan: Resp failure improving labs reviewed.No change in [place]
[2020-06-15 05:25] LABS: Absolute Lymphocytes (CBC) 0.7 K/uL (0.7-4.9); Basophils % 0.1 % (0-1.3); Hematocrit 35.9 % (39.6-49.0); MPV 8.7 fL (7.6-11.3); RBC Red Blood Cell Count 4.12 M/uL (4.33-5.43)
[2020-06-15 05:50] LABS: Blood Morphology Comment NOT SEEN (NOT SEEN); Platelet Estimate ADEQ
[2020-06-15 06:04] LABS: ALT/SGPT 64 U/L (12-78); AST/SGOT 28 U/L (15-37); Alkaline Phosphatase 94 U/L (45-117); BUN Blood Urea Nitrogen 26 mg/dL (7-18); Bicarbonate 28 mmol/L (21-32); Bilirubin Direct 0.3 mg/dL (0-0.2); Bilirubin Total 0.7 mg/dL (0.2-1.0); Ferritin 1906.9 ng/mL (26-388); Glucose Level 155 mg/dL (74-106); Potassium 4.7 mmol/L (3.5-5.1); Protein, Total 5.9 g/dL (6.4-8.2); Sodium Level 143 mmol/L (136-145)
[2020-06-15] MEDS: INSULIN -REGULAR HUMAN 50 UNIT/0.5 ML ML SQ SCH ×4 (08:42→20:11)
[2020-06-15] MEDS: INSULIN 70/30 100 UNITS/ML SQ SCH ×2 (08:43→17:24)
[2020-06-15] MEDS: METHYLPREDNISOLONE 125 MG INJ IV SCH ×2 (08:44→20:10)
[2020-06-15] MEDS: ASCORBIC ACID 500 MG TABLET PO SCH ×3 (08:45→20:11)
[2020-06-15] MEDS: ZINC SULFATE 220 MG CAP PO SCH (08:45)
[2020-06-15] MEDS: FAMOTIDINE 20 MG TAB PO SCH ×2 (08:45→20:11)
[2020-06-15] MEDS: THIAMINE HCL 100 MG TABLET PO SCH ×2 (08:45→20:11)
[2020-06-15] MEDS: FINASTERIDE 5 MG TAB PO SCH (08:45)
[2020-06-15] MEDS: APIXABAN 5 MG TABLET PO SCH ×2 (08:45→20:11)
[2020-06-15] MEDS: VITAMIN D 1000 UNIT TAB PO SCH (08:45)
--- NOTE | 2020-06-15 12:12 | P.PN ---
Subjective Date of Service: 06/15/20 Chief Complaint: Respiratory failure Subjective: No new changes (remains on HFNC, reports doing ok, tolerated diet, without new complaints today) Review of Systems 10-point ROS is otherwise unremarkable Physical Examination - Vital Signs Temperature: 97.1 F Blood Pressure: 124/74 Pulse: 75 Respirations: 27 Pulse Ox (%): 98 - Studies Microbiology Data (last 24 hrs): 06/09/20 12:48 Blood - Blood Aerobic Blood Culture - Final No growth in 5 days. 06/09/20 12:48 Blood - Blood Anaerobic Blood Culture - Final No growth in 5 days. 06/09/20 12:50 Blood - Blood Aerobic Blood Culture - Final No growth in 5 days. 06/09/20 12:50 Blood - Blood Anaerobic Blood Culture - Final No growth in 5 days. Assessment & Plan Physician Review Additional Text: Physical Exam: Gen: Alert, In no apparent distress Pulm: nonlabored breathing, on HFNC Cardiovascular: Regular rate/rhythm, no edema Gastrointestinal: Soft and benign, Non-distended Musculoskeletal: No swelling / no tenderness Integumentary: No rashes Problem List: Pneumonia due to COVID-19 virus Acute respiratory failure with hypoxia Hyperlipidemia Hyperglycemia BPH Continue IV Solu-Medrol, 80 BID, ferritin / CRP remain elevated continue high-flow oxygen as needed, refused BIPAP. Pulm following. continue remdesevir. s/p 1u Convalescent plasma Vitamin-D, vitamin-C, zinc and thiamine supplementation. Continue Eliquis Insulin sliding scale for glucose management. 70/30 10 U BID. Glc mostly < 200, continue to monitor closely Continue Proscar VTE: eliquis Code: full Dispo: anticipate hospitalization > 2 more days, will need home O2 Time Spent Managing Pts Care (In Minutes): 35
[2020-06-15] MEDS: Remdesivir 100 MG in NA CHLORIDE 0.9% 250 ML IV SCH (14:35)
[2020-06-16 05:32] LABS: ALT/SGPT 66 U/L (12-78); AST/SGOT 32 U/L (15-37); Albumin 2.1 g/dL (3.4-5.0); Alkaline Phosphatase 101 U/L (45-117); BUN Blood Urea Nitrogen 28 mg/dL (7-18); Bicarbonate 28 mmol/L (21-32); Bilirubin Direct 0.3 mg/dL (0-0.2); Bilirubin Total 0.9 mg/dL (0.2-1.0); Ferritin 1930.9 ng/mL (26-388); Glucose Level 139 mg/dL (74-106); Magnesium 2.4 mg/dL (1.8-2.4); Phosphorus 3.4 mg/dL (2.5-4.9); Potassium 4.7 mmol/L (3.5-5.1); Protein, Total 6.2 g/dL (6.4-8.2); Sodium Level 144 mmol/L (136-145)
[2020-06-16] MEDS: INSULIN -REGULAR HUMAN 50 UNIT/0.5 ML ML SQ SCH ×4 (07:30→21:04)
--- NOTE | 2020-06-16 07:38 | RAD REPORT ---
EXAM DESCRIPTION: [place] Single View06/16/2020 7:00 am CLINICAL HISTORY: Hypoxia COMPARISON: March 2010 FINDINGS: Mild to moderate worsening in left and no significant change in right pulmonary opacities . The heart remains enlarged IMPRESSION: Mild to moderate worsening in left and no significant change in right pulmonary opacitie s likely pneumonia
[2020-06-16] MEDS: ZINC SULFATE 220 MG CAP PO SCH (07:51)
[2020-06-16] MEDS: ASCORBIC ACID 500 MG TABLET PO SCH ×3 (07:51→21:05)
[2020-06-16] MEDS: METHYLPREDNISOLONE 125 MG INJ IV SCH ×2 (07:51→21:03)
[2020-06-16] MEDS: VITAMIN D 1000 UNIT TAB PO SCH (07:51)
[2020-06-16] MEDS: INSULIN 70/30 100 UNITS/ML SQ SCH ×2 (07:51→16:38)
[2020-06-16] MEDS: FAMOTIDINE 20 MG TAB PO SCH ×2 (07:52→21:05)
[2020-06-16] MEDS: THIAMINE HCL 100 MG TABLET PO SCH ×2 (07:52→21:05)
[2020-06-16] MEDS: FINASTERIDE 5 MG TAB PO SCH (07:52)
[2020-06-16] MEDS: APIXABAN 2.5 MG TABLET PO SCH ×2 (08:17→21:05)
--- NOTE | 2020-06-16 13:05 | P.PN ---
Subjective Date of Service: 06/15/20 Chief Complaint: Respiratory failure Patient is feeling better is improving still having significant desaturation Review of Systems General: Weakness Respiratory: Shortness of Breath Physical Examination - Vital Signs Temperature: 98.2 F Blood Pressure: 125/60 Pulse: 82 Respirations: 26 Pulse Ox (%): 75 Assessment & Plan - Problems (Diagnosis) (1) Pneumonia due to COVID-19 virus Current Visit: Yes Status: Acute Plan: Respiratory failure continue to titrate FiO2 down to 88-90% as very alert cooperative eating and drinking well repeat another dose of ivermectin labs reviewed vital signs stable
[2020-06-16] MEDS ORDERED: IVERMECTIN 3 MG TABLET PO ONE (13:30)
[2020-06-16] MEDS: Remdesivir 100 MG in NA CHLORIDE 0.9% 250 ML IV SCH (14:00)
--- NOTE | 2020-06-16 15:57 | P.PN ---
Subjective Date of Service: 06/16/20 Chief Complaint: Respiratory failure Subjective: Improving (feels a little better, frustrated with slow progress, eating ok, wanting to sit up to chair today) Review of Systems 10-point ROS is otherwise unremarkable Physical Examination - Vital Signs Temperature: 98.2 F Blood Pressure: 111/76 Pulse: 79 Respirations: 25 Pulse Ox (%): 91 Assessment & Plan Physician Review Additional Text: Physical Exam: Gen: Alert, In no apparent distress Pulm: nonlabored breathing, on HFNC Cardiovascular: Regular rate/rhythm, no edema Gastrointestinal: Soft and benign, Non-distended Musculoskeletal: No swelling / no tenderness Integumentary: No rashes Problem List: Pneumonia due to COVID-19 virus Acute respiratory failure with hypoxia Hyperlipidemia Hyperglycemia BPH Continue IV Solu-Medrol, 80 BID, ferritin / CRP remain elevated continue HFNC, refused BIPAP. Pulm following. continue remdesevir. s/p 1u Convalescent plasma Vitamin-D, vitamin-C, zinc and thiamine supplementation. Continue Eliquis Insulin sliding scale for glucose management. 70/30 10 U BID. Glc mostly < 200, continue to monitor closely Continue Proscar VTE: eliquis Code: full Dispo: anticipate hospitalization > 2 more days, will need home O2 Time Spent Managing Pts Care (In Minutes): 35
[2020-06-17 05:18] LABS: ALT/SGPT 70 U/L (12-78); AST/SGOT 34 U/L (15-37); Albumin 1.9 g/dL (3.4-5.0); Alkaline Phosphatase 94 U/L (45-117); BUN Blood Urea Nitrogen 30 mg/dL (7-18); Bicarbonate 30 mmol/L (21-32); Bilirubin Direct 0.2 mg/dL (0-0.2); Bilirubin Total 0.7 mg/dL (0.2-1.0); Ferritin 1726.4 ng/mL (26-388); Glucose Level 145 mg/dL (74-106); Magnesium 2.3 mg/dL (1.8-2.4); Phosphorus 4.2 mg/dL (2.5-4.9); Potassium 5.2 mmol/L (3.5-5.1); Protein, Total 5.6 g/dL (6.4-8.2); Sodium Level 143 mmol/L (136-145)
[2020-06-17] MEDS: INSULIN -REGULAR HUMAN 50 UNIT/0.5 ML ML SQ SCH ×4 (07:30→20:10)
[2020-06-17] MEDS: FINASTERIDE 5 MG TAB PO SCH (08:52)
[2020-06-17] MEDS: METHYLPREDNISOLONE 125 MG INJ IV SCH ×2 (08:52→20:09)
[2020-06-17] MEDS: APIXABAN 2.5 MG TABLET PO SCH ×2 (08:52→20:12)
[2020-06-17] MEDS: VITAMIN D 1000 UNIT TAB PO SCH (08:53)
[2020-06-17] MEDS: ASCORBIC ACID 500 MG TABLET PO SCH ×3 (08:54→20:11)
[2020-06-17] MEDS: ZINC SULFATE 220 MG CAP PO SCH (08:54)
[2020-06-17] MEDS: FAMOTIDINE 20 MG TAB PO SCH ×2 (08:54→20:11)
[2020-06-17] MEDS: THIAMINE HCL 100 MG TABLET PO SCH ×2 (08:54→20:10)
[2020-06-17] MEDS: INSULIN 70/30 100 UNITS/ML SQ SCH ×2 (08:56→16:23)
[2020-06-17] MEDS: Remdesivir 100 MG in NA CHLORIDE 0.9% 250 ML IV SCH ×2 (13:39→15:13)
--- NOTE | 2020-06-17 17:13 | P.PN ---
Subjective Date of Service: 06/17/20 Chief Complaint: Respiratory failure Subjective: Improving (Oxygen requirement improving, patient feeling better) Review of Systems 10-point ROS is otherwise unremarkable Physical Examination - Vital Signs Temperature: 98.7 F Blood Pressure: 106/91 Pulse: 68 Respirations: 19 Pulse Ox (%): 91 Assessment & Plan Physician Review Additional Text: Physical Exam: Gen: Alert, In no apparent distress, sitting in chair at bedside Pulm: nonlabored breathing, on HFNC Cardiovascular: Regular rate/rhythm, no edema Gastrointestinal: Soft and benign, Non-distended Musculoskeletal: No swelling / no tenderness Integumentary: No rashes Problem List: Pneumonia due to COVID-19 virus Acute respiratory failure with hypoxia Hyperlipidemia Hyperglycemia BPH Continue IV Solu-Medrol, 80 BID, ferritin / CRP remain elevated continue HFNC, BIPAP as needed. Pulm following. continue remdesevir. s/p 1u Convalescent plasma Vitamin-D, vitamin-C, zinc and thiamine supplementation. Continue Eliquis Insulin sliding scale for glucose management. 70/30 10 U BID. Glc mostly < 200, continue to monitor closely Continue Proscar Ferritin slightly improved, oxygen supplementation improved VTE: eliquis Code: full Dispo: anticipate hospitalization > 2 more days, will need home O2 Time Spent Managing Pts Care (In Minutes): 40
[2020-06-18 05:45] LABS: Absolute Lymphocytes (CBC) 0.6 K/uL (0.7-4.9); Basophils % 0.2 % (0-1.3); Hematocrit 39.5 % (39.6-49.0); Lymphocytes % 5.1 % (15.3-44.8); MPV 10.1 fL (7.6-11.3); RBC Red Blood Cell Count 4.45 M/uL (4.33-5.43)
[2020-06-18 06:10] LABS: ALT/SGPT 65 U/L (12-78); AST/SGOT 30 U/L (15-37); Alkaline Phosphatase 94 U/L (45-117); BUN Blood Urea Nitrogen 29 mg/dL (7-18); Bicarbonate 28 mmol/L (21-32); Bilirubin Direct 0.3 mg/dL (0-0.2); Bilirubin Total 0.8 mg/dL (0.2-1.0); Ferritin 1561.7 ng/mL (26-388); Glucose Level 153 mg/dL (74-106); Magnesium 2.2 mg/dL (1.8-2.4); Phosphorus 3.9 mg/dL (2.5-4.9); Potassium 5.2 mmol/L (3.5-5.1); Protein, Total 5.8 g/dL (6.4-8.2); Sodium Level 143 mmol/L (136-145)
[2020-06-18] MEDS: INSULIN 70/30 100 UNITS/ML SQ SCH ×2 (07:30→17:02)
[2020-06-18] MEDS: INSULIN -REGULAR HUMAN 50 UNIT/0.5 ML ML SQ SCH ×4 (07:30→20:33)
[2020-06-18 07:31] LABS: Blood Morphology Comment NOT SEEN (NOT SEEN); Platelet Estimate ADEQ; White Blood Cell Scan OK (OK)
[2020-06-18] MEDS: VITAMIN D 1000 UNIT TAB PO SCH (08:28)
[2020-06-18] MEDS: FINASTERIDE 5 MG TAB PO SCH (08:28)
[2020-06-18] MEDS: ASCORBIC ACID 500 MG TABLET PO SCH ×3 (08:29→20:32)
[2020-06-18] MEDS: METHYLPREDNISOLONE 125 MG INJ IV SCH ×2 (08:29→20:31)
[2020-06-18] MEDS: ZINC SULFATE 220 MG CAP PO SCH (08:29)
[2020-06-18] MEDS: THIAMINE HCL 100 MG TABLET PO SCH ×2 (08:29→20:32)
[2020-06-18] MEDS: FAMOTIDINE 20 MG TAB PO SCH ×2 (08:29→20:32)
[2020-06-18] MEDS: APIXABAN 2.5 MG TABLET PO SCH (09:04)
--- NOTE | 2020-06-18 12:15 | P.PN ---
Subjective Date of Service: 06/18/20 Chief Complaint: Respiratory failure No change in patient's condition he is feeling better still on high concentrations of oxygen potassium elevated blood sugar also elevated Physical Examination - Vital Signs Temperature: 97.5 F Blood Pressure: 99/56 Pulse: 66 Respirations: 23 Pulse Ox (%): 94 - Physical Exam General: Alert, Mild distress Respiratory: Clear to auscultation bilaterally Assessment & Plan - Problems (Diagnosis) (1) Pneumonia due to COVID-19 virus Current Visit: Yes Status: Acute Plan: Respiratory failure continue with the present therapy blood sugars elevated insulin has been increased not sure why his potassium is elevated to 5.2 no change continue with current doses of steroids
--- NOTE | 2020-06-18 16:48 | P.PN ---
Subjective Date of Service: 06/18/20 Chief Complaint: Respiratory failure Subjective: No new changes (still requiring high level oxygen, he feels about the same. no new complaints) Review of Systems 10-point ROS is otherwise unremarkable Physical Examination - Vital Signs Temperature: 97.5 F Blood Pressure: 97/60 Pulse: 77 Respirations: 22 Pulse Ox (%): 82 Assessment & Plan Physician Review Additional Text: Physical Exam: Gen: Alert, In no apparent distress Pulm: nonlabored breathing, on HFNC CV: Regular rate/rhythm, no edema GI: Soft and benign, Non-distended Ext: No swelling / no tenderness Problem List: Pneumonia due to COVID-19 virus Acute respiratory failure with hypoxia Hyperlipidemia Hyperglycemia BPH Continue IV Solu-Medrol, 80 BID continue HFNC, BIPAP as needed. Pulm following. continue remdesevir. s/p 1u Convalescent plasma Vitamin-D, vitamin-C, zinc and thiamine supplementation. Continue Eliquis Insulin sliding scale for glucose management. 70/30 10 U BID. Glc mostly < 200, continue to monitor closely Continue Proscar Ferritin slightly improved, oxygen supplementation improved VTE: eliquis Code: full Dispo: anticipate hospitalization > 2 more days, will need home O2 Time Spent Managing Pts Care (In Minutes): 40
[2020-06-18] MEDS: APIXABAN 5 MG TABLET PO SCH (20:33)
[2020-06-19 05:28] LABS: BUN Blood Urea Nitrogen 28 mg/dL (7-18); Bicarbonate 30 mmol/L (21-32); Ferritin 1455.8 ng/mL (26-388); Glucose Level 134 mg/dL (74-106); Magnesium 2.3 mg/dL (1.8-2.4); Phosphorus 3.8 mg/dL (2.5-4.9); Potassium 4.9 mmol/L (3.5-5.1); Sodium Level 141 mmol/L (136-145)
[2020-06-19] MEDS: INSULIN -REGULAR HUMAN 50 UNIT/0.5 ML ML SQ SCH ×4 (07:30→20:21)
[2020-06-19] MEDS: INSULIN 70/30 100 UNITS/ML SQ SCH ×2 (08:52→17:56)
[2020-06-19] MEDS: VITAMIN D 1000 UNIT TAB PO SCH (08:53)
[2020-06-19] MEDS: ZINC SULFATE 220 MG CAP PO SCH (08:53)
[2020-06-19] MEDS: ASCORBIC ACID 500 MG TABLET PO SCH ×3 (08:54→20:22)
[2020-06-19] MEDS: FAMOTIDINE 20 MG TAB PO SCH ×2 (08:54→20:22)
[2020-06-19] MEDS: APIXABAN 5 MG TABLET PO SCH ×2 (08:54→20:21)
[2020-06-19] MEDS: FINASTERIDE 5 MG TAB PO SCH (08:54)
[2020-06-19] MEDS: METHYLPREDNISOLONE 125 MG INJ IV SCH ×2 (08:54→20:22)
--- NOTE | 2020-06-19 10:02 | P.PN ---
Subjective Date of Service: 06/19/20 (Hospital is) Chief Complaint: Respiratory failure Patient is not doing well still requiring very high concentrations of oxygen on maximum high-flow on non-rebreather Review of Systems General: Weakness Respiratory: Shortness of Breath Physical Examination - Vital Signs Temperature: 97.6 F Blood Pressure: 114/58 Pulse: 71 Respirations: 22 Pulse Ox (%): 86 - Physical Exam General: Alert, Oriented x3, Moderate distress Respiratory: Clear to auscultation bilaterally, Diminished Cardiovascular: No edema, Normal S1 S2 Assessment & Plan - Problems (Diagnosis) (1) Pneumonia due to COVID-19 virus Current Visit: Yes Status: Acute Plan: Respiratory failure no change still requiring high concentrations of oxygen trial of BiPAP in the daytime chemistries reviewed blood sugar is reasonably controlled spironolactone to promote a slight negative fluid balance that may help chest x-ray has been ordered
[2020-06-19] MEDS: THIAMINE HCL 100 MG TABLET PO SCH ×2 (10:31→20:22)
[2020-06-19] MEDS: SPIRONOLACTONE 25 MG TABLET PO SCH (11:51)
[2020-06-20 05:57] LABS: Absolute Lymphocytes (CBC) 1.1 K/uL (0.7-4.9); Basophils % 0.4 % (0-1.3); Lymphocytes % 6.9 % (15.3-44.8); MPV 9.4 fL (7.6-11.3); RBC Red Blood Cell Count 4.67 M/uL (4.33-5.43)
[2020-06-20 06:31] LABS: BUN Blood Urea Nitrogen 31 mg/dL (7-18); Bicarbonate 32 mmol/L (21-32); Ferritin 1796.2 ng/mL (26-388); Glucose Level 145 mg/dL (74-106); Potassium 4.6 mmol/L (3.5-5.1); Sodium Level 141 mmol/L (136-145)
[2020-06-20] MEDS: INSULIN -REGULAR HUMAN 50 UNIT/0.5 ML ML SQ SCH ×4 (07:22→20:17)
--- NOTE | 2020-06-20 07:36 | RAD REPORT ---
EXAM DESCRIPTION: RAD - Chest Single View - 06/20/2020 7:24 am CLINICAL HISTORY: Respiratory failure COMPARISON: Portable June 16, CT chest June 09 TECHNIQUE: AP portable chest image was obtained 06/20/2020 7:24 am . FINDINGS: Left lung base airspace opacification has not changed. Patient may have slight improvement in the mid left lung field. Minimal right base interstitial and alveolar opacification has not ochoa ed. Subcutaneous emphysema has developed in the upper chest and neck base soft tissues. Pneumomediast inum cannot be confirmed. Heart and vasculature are normal. No measurable pleural effusion and no pneumothorax. No acute bony abnormality seen. No acute aortic findings suspected. IMPRESSION: Subcutaneous emphysema has developed in the upper chest and neck base since the last exa mination. Pneumomediastinum is suspected but cannot be confirmed. Patient has slight improvement in the mid left lung field with each lung base showing no change in in terstitial and airspace opacification.
[2020-06-20] MEDS: VITAMIN D 1000 UNIT TAB PO SCH (08:21)
[2020-06-20] MEDS: METHYLPREDNISOLONE 125 MG INJ IV SCH ×2 (08:21→20:18)
[2020-06-20] MEDS: INSULIN 70/30 100 UNITS/ML SQ SCH ×2 (08:21→17:27)
[2020-06-20] MEDS: ZINC SULFATE 220 MG CAP PO SCH (08:22)
[2020-06-20] MEDS: ASCORBIC ACID 500 MG TABLET PO SCH ×3 (08:22→20:17)
[2020-06-20] MEDS: FAMOTIDINE 20 MG TAB PO SCH ×2 (08:22→20:17)
[2020-06-20] MEDS: SPIRONOLACTONE 25 MG TABLET PO SCH (08:22)
[2020-06-20] MEDS: THIAMINE HCL 100 MG TABLET PO SCH ×2 (08:22→20:17)
[2020-06-20] MEDS: FINASTERIDE 5 MG TAB PO SCH (08:23)
[2020-06-20] MEDS: APIXABAN 5 MG TABLET PO SCH ×2 (08:23→20:16)
--- NOTE | 2020-06-20 09:15 | P.PN ---
Subjective Date of Service: 06/20/20 (Hospital is) Chief Complaint: Respiratory failure No change in patient's condition is still requiring high concentrations of oxygen tolerating BiPAP Review of Systems General: Weakness Respiratory: Shortness of Breath Physical Examination - Vital Signs Temperature: 98.7 F Blood Pressure: 112/53 Pulse: 78 Respirations: 27 Pulse Ox (%): 94 - Physical Exam General: Alert, Moderate distress Respiratory: Clear to auscultation bilaterally, Diminished Cardiovascular: No edema, Regular rate/rhythm Assessment & Plan - Problems (Diagnosis) (1) Pneumonia due to COVID-19 virus Current Visit: Yes Status: Acute Plan: Respiratory failure continue to titrate his oxygen level down is still tachypneic chemistries reviewed white count is mildly elevated blood sugars elevated increase insulin
[2020-06-21 06:08] LABS: C-Reactive Protein 12.2 mg/L (<3.00); Ferritin 1741.3 ng/mL (26-388)
[2020-06-21] MEDS: INSULIN 70/30 100 UNITS/ML SQ SCH ×3 (07:30→18:36)
[2020-06-21] MEDS: INSULIN -REGULAR HUMAN 50 UNIT/0.5 ML ML SQ SCH ×4 (07:30→21:06)
[2020-06-21] MEDS: ASCORBIC ACID 500 MG TABLET PO SCH ×3 (08:57→21:08)
[2020-06-21] MEDS: FAMOTIDINE 20 MG TAB PO SCH ×2 (08:57→21:09)
[2020-06-21] MEDS: VITAMIN D 1000 UNIT TAB PO SCH (08:57)
[2020-06-21] MEDS: APIXABAN 5 MG TABLET PO SCH ×2 (08:57→21:09)
[2020-06-21] MEDS: ZINC SULFATE 220 MG CAP PO SCH (08:57)
[2020-06-21] MEDS: THIAMINE HCL 100 MG TABLET PO SCH ×2 (08:57→21:08)
[2020-06-21] MEDS: SPIRONOLACTONE 25 MG TABLET PO SCH (08:57)
[2020-06-21] MEDS: METHYLPREDNISOLONE 125 MG INJ IV SCH (08:57)
[2020-06-21] MEDS: FINASTERIDE 5 MG TAB PO SCH (08:57)
[2020-06-21] MEDS: FLUCONAZOLE 100 MG TAB PO SCH ×2 (09:00→14:19)
--- NOTE | 2020-06-21 13:01 | P.PN ---
Subjective Date of Service: 06/21/20 Chief Complaint: Respiratory failure Subjective: Worsening (Continues with quickly desaturating with movement. Very short of breath after he has taken a few steps. voiding well, appetite is ok) Review of Systems 10-point ROS is otherwise unremarkable Physical Examination - Vital Signs Temperature: 99.0 F Blood Pressure: 103/68 Pulse: 81 Respirations: 25 Pulse Ox (%): 96 Assessment & Plan Physician Review Additional Text: Physical Exam: Gen: Alert, sitting in chair at bedside Pulm: mild labored breathing, on BIPAP CV: Regular rate/rhythm, 1+ edema bilaterally R >L GI: Soft and benign, Non-distended Ext: No swelling / no tenderness Problem List: Pneumonia due to COVID-19 virus Acute respiratory failure with hypoxia Hyperlipidemia Hyperglycemia BPH Continue IV Solu-Medrol, 40 BID continue HFNC, BIPAP as needed. Pulm following. continue remdesevir. s/p 1u Convalescent plasma Vitamin-D, vitamin-C, zinc and thiamine supplementation. fluconazole started 06/21 given prolonged course, on steroids Continue Eliquis Insulin sliding scale for glucose management. decrease 70/30 down to 10 U BID. Glc mostly < 200, continue to monitor closely Continue Proscar VTE: eliquis Code: full Dispo: anticipate hospitalization > 2 more days, will need home O2 Time Spent Managing Pts Care (In Minutes): 35
[2020-06-21] MEDS: METHYLPREDNISOLONE 40 MG INJ IV SCH (21:07)
[2020-06-22 05:30] LABS: Absolute Lymphocytes (CBC) 0.4 K/uL (0.7-4.9); Basophils % 0.8 % (0-1.3); Hematocrit 39.8 % (39.6-49.0); Lymphocytes % 2.9 % (15.3-44.8); MPV 9.3 fL (7.6-11.3); RBC Red Blood Cell Count 4.46 M/uL (4.33-5.43)
[2020-06-22 06:11] LABS: ALT/SGPT 83 U/L (12-78); AST/SGOT 36 U/L (15-37); Albumin 2.2 g/dL (3.4-5.0); Alkaline Phosphatase 89 U/L (45-117); BUN Blood Urea Nitrogen 31 mg/dL (7-18); Bicarbonate 30 mmol/L (21-32); Bilirubin Total 0.8 mg/dL (0.2-1.0); Ferritin 2164.2 ng/mL (26-388); Glucose Level 117 mg/dL (74-106); Magnesium 2.3 mg/dL (1.8-2.4); Potassium 4.8 mmol/L (3.5-5.1); Protein, Total 5.8 g/dL (6.4-8.2); Sodium Level 142 mmol/L (136-145)
[2020-06-22 06:55] LABS: Blood Morphology Comment NOT SEEN (NOT SEEN); Platelet Estimate ADEQ
[2020-06-22] MEDS: INSULIN -REGULAR HUMAN 50 UNIT/0.5 ML ML SQ SCH ×4 (07:30→21:29)
--- NOTE | 2020-06-22 08:27 | P.PN ---
Subjective Date of Service: 06/22/20 Chief Complaint: Respiratory failure No change still requiring high concentrations of oxygen BiPAP still very dyspneic Review of Systems General: Weakness Respiratory: Shortness of Breath Physical Examination - Vital Signs Temperature: 97.7 F Blood Pressure: 108/62 Pulse: 60 Respirations: 17 Pulse Ox (%): 94 - Physical Exam General: Alert, Moderate distress Respiratory: Diminished, Crackles/rales Assessment & Plan - Problems (Diagnosis) (1) Pneumonia due to COVID-19 virus Current Visit: Yes Status: Acute Plan: Respiratory failure continue to wean oxygen labs reviewed white count is mildly elevated otherwise no chain
[2020-06-22] MEDS: INSULIN 70/30 100 UNITS/ML SQ SCH ×2 (09:20→17:36)
[2020-06-22] MEDS: METHYLPREDNISOLONE 40 MG INJ IV SCH ×2 (09:21→21:30)
[2020-06-22] MEDS: ZINC SULFATE 220 MG CAP PO SCH (09:21)
[2020-06-22] MEDS: ASCORBIC ACID 500 MG TABLET PO SCH ×3 (09:21→21:31)
[2020-06-22] MEDS: VITAMIN D 1000 UNIT TAB PO SCH (09:21)
[2020-06-22] MEDS: APIXABAN 5 MG TABLET PO SCH ×2 (09:21→21:25)
[2020-06-22] MEDS: SPIRONOLACTONE 25 MG TABLET PO SCH (09:21)
[2020-06-22] MEDS: FAMOTIDINE 20 MG TAB PO SCH ×2 (09:21→21:30)
[2020-06-22] MEDS: FINASTERIDE 5 MG TAB PO SCH (09:22)
[2020-06-22] MEDS: THIAMINE HCL 100 MG TABLET PO SCH ×2 (09:22→21:31)
[2020-06-22] MEDS: FLUCONAZOLE 100 MG TAB PO SCH (09:22)
--- NOTE | 2020-06-22 13:40 | P.PN ---
Subjective Date of Service: 06/22/20 Chief Complaint: Respiratory failure Patient remain on high-flow. No new complain. Physical Examination - Vital Signs Temperature: 97.7 F Blood Pressure: 121/76 Pulse: 97 Respirations: 21 Pulse Ox (%): 89 - Physical Exam General: Alert, In no apparent distress Respiratory: Other (Nonlabored breathing) Cardiovascular: Regular rate/rhythm Gastrointestinal: Non-distended Musculoskeletal: No swelling Integumentary: No rashes Neurological: Other (No focal motor deficit) Assessment And Plan - Current Problems (Diagnosis) (1) Pneumonia due to COVID-19 virus Current Visit: Yes Status: Acute (2) Acute respiratory failure with hypoxia Current Visit: Yes Status: Acute (3) Hyperlipidemia Current Visit: Yes Status: Acute (4) Hyperglycemia Current Visit: Yes Status: Acute (5) BPH (benign prostatic hyperplasia) Current Visit: Yes Status: Acute - Plan Continue IV Solu-Medrol 40 mg b.i.d. BiPAP and high-flow oxygen as needed. Status post Remdesivir Vitamin-D, vitamin-C, zinc and thiamine supplementation. Continue Eliquis On fluconazole for prophylaxis against fungal infection given prolonged steroid therapy. Status post 1 unit convalescent plasma. Novolin 70/30 and insulin sliding scale for glucose management.
[2020-06-23] MEDS: INSULIN -REGULAR HUMAN 50 UNIT/0.5 ML ML SQ SCH ×4 (07:30→20:42)
[2020-06-23] MEDS: INSULIN 70/30 100 UNITS/ML SQ SCH ×2 (07:30→17:49)
--- NOTE | 2020-06-23 09:16 | RAD REPORT ---
EXAM DESCRIPTION: [place] Single View06/23/2020 8:57 am CLINICAL HISTORY: Cough COMPARISON: June 20, 2020 FINDINGS: Mild decrease in the degree of subcutaneous emphysema. Pneumomediastinum unchanged. Mild improvement in the bilateral pulmonary opacities. The heart is mildly enlarged IMPRESSION: Mild improvement in the bilateral pulmonary opacities probably pneumonia
[2020-06-23] MEDS: METHYLPREDNISOLONE 40 MG INJ IV SCH ×2 (10:50→20:43)
--- NOTE | 2020-06-23 11:08 | P.PN ---
Subjective Date of Service: 06/23/20 Chief Complaint: Respiratory failure Subjective: No new changes (Still having shortness of breath , still on BiPAP saturation drops when taken off BiPAP even for a few min) Review of Systems 10-point ROS is otherwise unremarkable Respiratory: Shortness of Breath (Still having shortness of breath, hypoxia and of BiPAP) Physical Examination - Vital Signs Temperature: 97.5 F Blood Pressure: 133/73 Pulse: 93 Respirations: 30 Pulse Ox (%): 89 - Physical Exam General: Alert, Cooperative, Moderate distress HEENT: Atraumatic, Normocephalic Neck: Supple, JVD not distended Respiratory: Diminished, Crackles/rales Cardiovascular: Regular rate/rhythm, Normal S1 S2 Capillary refill: <2 Seconds Gastrointestinal: Soft and benign, W/out hepatosplenomegaly Musculoskeletal: No clubbing, No swelling Integumentary: No rashes, No breakdown Neurological: Other (Alert awake nonfocal, moving all 4 limbs) Lymphatics: No axilla or inguinal lymphadenopathy Assessment & Plan - Problems (Diagnosis) (1) Acute respiratory failure with hypoxia Current Visit: Yes Status: Acute (2) BPH (benign prostatic hyperplasia) Current Visit: Yes Status: Acute (3) Hyperglycemia Current Visit: Yes Status: Acute (4) Hyperlipidemia Current Visit: Yes Status: Acute (5) Pneumonia due to COVID-19 virus Current Visit: Yes Status: Acute Physician Review Additional Text: Assessment plan Acute hypoxic respiratory failure Multifocal pneumonia Pneumonia due to COVID-19 virus Hyperlipidemia Hyperglycemia BPH Overweight Still on BiPAP, having hypoxic episodes when off BiPAP for a few min Continue IV Solu-Medrol, Repeat x-ray findings noted CRP is trending down Appreciate help from pulmonology continue HFNC, BIPAP Continue remdesevir. s/p 1u Convalescent plasma Vitamin-D, vitamin-C, zinc and thiamine supplementation. fluconazole started 06/21 given prolonged course, on steroids Continue Eliquis Insulin sliding scale for glucose management. Continue Proscar VTE: eliquis Code: full Prognosis guarded Risk of further deterioration and possible intubation Time Spent Managing Pts Care (In Minutes): 42
--- NOTE | 2020-06-23 11:51 | RAD REPORT ---
EXAM DESCRIPTION: RAD - Chest Single View - 06/23/2020 11:45 am CLINICAL HISTORY: Device placement Dobhoff tube placement IMPRESSION: The tip of a Dobhoff tube lies within the gastric body
--- NOTE | 2020-06-23 11:55 | P.PN ---
Subjective Date of Service: 06/23/20 Chief Complaint: Respiratory failure No change continues to remain very hypoxic still requiring high concentrations of oxygen Review of Systems General: Weakness Respiratory: Shortness of Breath Physical Examination - Vital Signs Temperature: 97.5 F Blood Pressure: 133/73 Pulse: 93 Respirations: 30 Pulse Ox (%): 89 Assessment & Plan - Problems (Diagnosis) (1) Pneumonia due to COVID-19 virus Current Visit: Yes Status: Acute Plan: Respiratory failure no change still very hypoxic insulin dose increased nasogastric tube feeds started patient has significant desaturation on minimal exertion mild improvement repeat dose of ivermectin
[2020-06-23] MEDS: ZINC SULFATE 220 MG CAP PO SCH (12:30)
[2020-06-23] MEDS: GLUCERNA SHAKE 237 ML CAN PO SCH ×3 (12:30→20:42)
[2020-06-23] MEDS: VITAMIN D 1000 UNIT TAB PO SCH (12:30)
[2020-06-23] MEDS: FINASTERIDE 5 MG TAB PO SCH (12:30)
[2020-06-23] MEDS: THIAMINE HCL 100 MG TABLET PO SCH ×2 (12:30→20:43)
[2020-06-23] MEDS: FLUCONAZOLE 100 MG TAB PO SCH (12:30)
[2020-06-23] MEDS: ASCORBIC ACID 500 MG TABLET PO SCH ×3 (12:31→20:44)
[2020-06-23] MEDS: SPIRONOLACTONE 25 MG TABLET PO SCH (12:31)
[2020-06-23] MEDS: APIXABAN 5 MG TABLET PO SCH ×2 (12:31→20:39)
[2020-06-23] MEDS: FAMOTIDINE 20 MG TAB PO SCH ×2 (12:31→20:43)
[2020-06-23] MEDS ORDERED: IVERMECTIN 3 MG TABLET PO ONE (13:00)
[2020-06-24] MEDS: FINASTERIDE 5 MG TAB PO SCH (08:05)
[2020-06-24] MEDS: FLUCONAZOLE 100 MG TAB PO SCH (08:05)
[2020-06-24] MEDS: SPIRONOLACTONE 25 MG TABLET PO SCH (08:05)
[2020-06-24] MEDS: VITAMIN D 1000 UNIT TAB PO SCH (08:05)
[2020-06-24] MEDS: THIAMINE HCL 100 MG TABLET PO SCH ×2 (08:05→21:07)
[2020-06-24] MEDS: INSULIN -REGULAR HUMAN 50 UNIT/0.5 ML ML SQ SCH ×4 (08:06→21:00)
[2020-06-24] MEDS: ZINC SULFATE 220 MG CAP PO SCH (08:06)
[2020-06-24] MEDS: FAMOTIDINE 20 MG TAB PO SCH ×2 (08:06→21:07)
[2020-06-24] MEDS: ASCORBIC ACID 500 MG TABLET PO SCH ×3 (08:06→21:08)
[2020-06-24] MEDS: APIXABAN 5 MG TABLET PO SCH ×2 (08:06→21:08)
[2020-06-24] MEDS: METHYLPREDNISOLONE 40 MG INJ IV SCH ×2 (08:06→21:07)
[2020-06-24] MEDS: GLUCERNA SHAKE 237 ML CAN PO SCH ×3 (08:07→21:08)
[2020-06-24] MEDS: INSULIN 70/30 100 UNITS/ML SQ SCH ×2 (08:07→17:15)
[2020-06-24 09:36] LABS: BUN Blood Urea Nitrogen 34 mg/dL (7-18); Bicarbonate 30 mmol/L (21-32); Glucose Level 192 mg/dL (74-106); Potassium 5.1 mmol/L (3.5-5.1); Sodium Level 141 mmol/L (136-145)
[2020-06-24 09:42] LABS: Absolute Lymphocytes (CBC) 0.7 K/uL (0.7-4.9); Basophils % 0.3 % (0-1.3); Hematocrit 42.9 % (39.6-49.0); Lymphocytes % 4.8 % (15.3-44.8); MPV 9.5 fL (7.6-11.3); RBC Red Blood Cell Count 4.79 M/uL (4.33-5.43)
--- NOTE | 2020-06-24 16:45 | P.PN ---
Subjective Date of Service: 06/24/20 Chief Complaint: Respiratory failure No new complain. Patient remains stable on high-flow oxygen. Physical Examination - Vital Signs Temperature: 96.8 F Blood Pressure: 133/93 Pulse: 83 Respirations: 31 Pulse Ox (%): 88 - Physical Exam General: Alert, In no apparent distress Neck: JVD not distended Respiratory: Other (Nonlabored breathing.) Cardiovascular: No edema, Regular rate/rhythm Gastrointestinal: Soft and benign, Non-distended Musculoskeletal: No swelling Integumentary: No rashes Neurological: Other (No focal motor deficit) Assessment And Plan - Current Problems (Diagnosis) (1) Pneumonia due to COVID-19 virus Current Visit: Yes Status: Acute (2) Acute respiratory failure with hypoxia Current Visit: Yes Status: Acute (3) Hyperlipidemia Current Visit: Yes Status: Acute (4) Hyperglycemia Current Visit: Yes Status: Acute (5) BPH (benign prostatic hyperplasia) Current Visit: Yes Status: Acute - Plan Continue IV Solu-Medrol 40 mg b.i.d. BiPAP and high-flow oxygen as needed. Status post Remdesivir Vitamin-D, vitamin-C, zinc and thiamine supplementation. Continue Eliquis On fluconazole for prophylaxis against fungal infection given prolonged steroid therapy. Status post 1 unit convalescent plasma. Blood sugar within acceptable range. Continue Novolin 70/30 and insulin sliding scale for glucose management.
[2020-06-24] MEDS ORDERED: D50W 25 GM/50 ML SYRINGE IV PRN (21:11)
[2020-06-25] MEDS: INSULIN -REGULAR HUMAN 50 UNIT/0.5 ML ML SQ SCH ×4 (06:00→17:24)
[2020-06-25 07:06] LABS: Absolute Lymphocytes (CBC) 0.9 K/uL (0.7-4.9); Basophils % 0.2 % (0-1.3); Hematocrit 42.2 % (39.6-49.0); Lymphocytes % 5.4 % (15.3-44.8); MPV 9.5 fL (7.6-11.3); RBC Red Blood Cell Count 4.74 M/uL (4.33-5.43)
[2020-06-25 07:43] LABS: BUN Blood Urea Nitrogen 30 mg/dL (7-18); Bicarbonate 30 mmol/L (21-32); Ferritin 2312.9 ng/mL (26-388); Glucose Level 125 mg/dL (74-106); Phosphorus 3.5 mg/dL (2.5-4.9); Sodium Level 140 mmol/L (136-145)
[2020-06-25 07:45] LABS: Magnesium 2.4 mg/dL (1.8-2.4)
[2020-06-25] MEDS: FLUCONAZOLE 100 MG TAB PO SCH (08:09)
[2020-06-25] MEDS: METHYLPREDNISOLONE 40 MG INJ IV SCH ×2 (08:09→20:58)
[2020-06-25] MEDS: ZINC SULFATE 220 MG CAP PO SCH (08:09)
[2020-06-25] MEDS: INSULIN 70/30 100 UNITS/ML SQ SCH ×2 (08:09→17:24)
[2020-06-25] MEDS: VITAMIN D 1000 UNIT TAB PO SCH (08:09)
[2020-06-25] MEDS: FINASTERIDE 5 MG TAB PO SCH (08:10)
[2020-06-25] MEDS: APIXABAN 5 MG TABLET PO SCH ×2 (08:10→20:57)
[2020-06-25] MEDS: ASCORBIC ACID 500 MG TABLET PO SCH ×3 (08:10→20:57)
[2020-06-25] MEDS: SPIRONOLACTONE 25 MG TABLET PO SCH (08:10)
[2020-06-25] MEDS: GLUCERNA SHAKE 237 ML CAN PO SCH ×3 (08:10→20:59)
[2020-06-25] MEDS: THIAMINE HCL 100 MG TABLET PO SCH ×2 (08:10→20:57)
[2020-06-25] MEDS: FAMOTIDINE 20 MG TAB PO SCH ×2 (08:10→20:57)
[2020-06-25 08:57] LABS: Blood Morphology Comment NOT SEEN (NOT SEEN); Platelet Estimate ADEQ
--- NOTE | 2020-06-25 10:44 | P.PN ---
Subjective Date of Service: 06/25/20 Chief Complaint: Respiratory failure No change still requiring high concentrations of oxygen feeling very weak he is on nasogastric tube feeds Physical Examination - Vital Signs Temperature: 97.8 F Blood Pressure: 122/68 Pulse: 75 Respirations: 21 Pulse Ox (%): 95 - Physical Exam General: Alert, Moderate distress Respiratory: Clear to auscultation bilaterally, Diminished Assessment & Plan - Problems (Diagnosis) (1) Pneumonia due to COVID-19 virus Current Visit: Yes Status: Acute Plan: Respiratory failure no change continue with present therapy tolerating tube feeds labs vital signs all reviewed prognosis poor continue with prone position ventilation he does much better however he is not able to lie on his prone for significant amount at time
[2020-06-25] MEDS: MORPHINE 2 MG/ML SYR IV PRN (12:15)
--- NOTE | 2020-06-25 15:14 | P.PN ---
Subjective Date of Service: 06/25/20 Chief Complaint: Respiratory failure Patient respiratory condition is worse today. He is put on prone position. Oxygen saturation was mid 80s but currently improved to the low 90s on BiPAP. Physical Examination - Vital Signs Temperature: 97.2 F Blood Pressure: 123/71 Pulse: 92 Respirations: 35 Pulse Ox (%): 93 - Physical Exam General: In no apparent distress, Mild distress, Other ([place]) Respiratory: Other (No labored breathing) Cardiovascular: No edema, Regular rate/rhythm, Normal S1 S2 Gastrointestinal: Non-distended Musculoskeletal: No swelling Integumentary: No rashes Neurological: Other (No focal motor deficit) Assessment And Plan - Current Problems (Diagnosis) (1) Pneumonia due to COVID-19 virus Current Visit: Yes Status: Acute (2) Acute respiratory failure with hypoxia Current Visit: Yes Status: Acute (3) Hyperlipidemia Current Visit: Yes Status: Acute (4) Hyperglycemia Current Visit: Yes Status: Acute (5) BPH (benign prostatic hyperplasia) Current Visit: Yes Status: Acute - Plan Continue IV Solu-Medrol 40 mg b.i.d. BiPAP and high-flow oxygen as needed. Status post Remdesivir. Status post 1 unit convalescent plasma. Will give 1 more unit convalescent plasma given is worsening respiratory status. Continue Vitamin-D, vitamin-C, zinc and thiamine supplementation. Continue Eliquis On fluconazole for prophylaxis against fungal infection given prolonged steroid therapy. Blood sugar within acceptable range. Continue Novolin 70/30 and insulin sliding scale for glucose management. Physician Review Additional Text: Assessment plan Acute hypoxic respiratory failure Multifocal pneumonia Pneumonia due to COVID-19 virus Hyperlipidemia Hyperglycemia BPH Overweight Still on BiPAP, having hypoxic episodes when off BiPAP for a few min Continue IV Solu-Medrol, Repeat x-ray findings noted CRP is trending down Appreciate help from pulmonology continue HFNC, BIPAP Continue remdesevir. s/p 1u Convalescent plasma Vitamin-D, vitamin-C, zinc and thiamine supplementation. fluconazole started 06/21 given prolonged course, on steroids Continue Eliquis Insulin sliding scale for glucose management. Continue Proscar VTE: eliquis Code: full Prognosis guarded Risk of further deterioration and possible intubation
[2020-06-26] MEDS: INSULIN -REGULAR HUMAN 50 UNIT/0.5 ML ML SQ SCH ×4 (00:48→17:52)
[2020-06-26 05:03] LABS: Absolute Lymphocytes (CBC) 0.7 K/uL (0.7-4.9); Basophils % 0.4 % (0-1.3); Hematocrit 42.8 % (39.6-49.0); Lymphocytes % 4.5 % (15.3-44.8); MPV 9.1 fL (7.6-11.3); RBC Red Blood Cell Count 4.81 M/uL (4.33-5.43)
[2020-06-26 05:50] LABS: BUN Blood Urea Nitrogen 31 mg/dL (7-18); Bicarbonate 30 mmol/L (21-32); C-Reactive Protein 6.02 mg/L (<3.00); Glucose Level 171 mg/dL (74-106); Potassium 5.1 mmol/L (3.5-5.1); Sodium Level 137 mmol/L (136-145)
[2020-06-26 06:11] VITALS: BMI 26.4
[2020-06-26] MEDS: INSULIN 70/30 100 UNITS/ML SQ SCH ×2 (08:30→17:53)
[2020-06-26] MEDS: SPIRONOLACTONE 25 MG TABLET PO SCH (08:58)
[2020-06-26] MEDS: APIXABAN 5 MG TABLET PO SCH ×2 (08:58→21:11)
[2020-06-26] MEDS: FAMOTIDINE 20 MG TAB PO SCH ×2 (08:58→21:11)
[2020-06-26] MEDS: VITAMIN D 1000 UNIT TAB PO SCH (08:58)
[2020-06-26] MEDS: FINASTERIDE 5 MG TAB PO SCH (08:58)
[2020-06-26] MEDS: FLUCONAZOLE 100 MG TAB PO SCH (08:58)
[2020-06-26] MEDS: GLUCERNA SHAKE 237 ML CAN PO SCH ×3 (08:59→21:12)
[2020-06-26] MEDS: METHYLPREDNISOLONE 40 MG INJ IV SCH ×2 (08:59→21:11)
[2020-06-26] MEDS: ASCORBIC ACID 500 MG TABLET PO SCH ×3 (08:59→21:10)
[2020-06-26] MEDS: ZINC SULFATE 220 MG CAP PO SCH (08:59)
[2020-06-26] MEDS: THIAMINE HCL 100 MG TABLET PO SCH ×2 (08:59→21:11)
[2020-06-26] MEDS ORDERED: D50W 25 GM/50 ML VIAL IV PRN (10:00)
--- NOTE | 2020-06-26 10:29 | P.PN ---
Subjective Date of Service: 06/27/20 Chief Complaint: Respiratory failure No change still requiring high concentrations of oxygen feeling very weak he is on nasogastric tube feeds this patient is still alert no change Physical Examination - Vital Signs Temperature: 98.2 F Blood Pressure: 130/79 Pulse: 85 Respirations: 31 Pulse Ox (%): 94 - Physical Exam General: Alert, Moderate distress Neck: Supple Respiratory: Diminished Assessment & Plan - Problems (Diagnosis) (1) Pneumonia due to COVID-19 virus Current Visit: Yes Status: Acute Plan: no change in patient's condition is still alert appearing tired continue with tube feeds labs med list reviewed
--- NOTE | 2020-06-26 10:33 | P.PN ---
Subjective Date of Service: 06/26/20 Chief Complaint: Respiratory failure Patient respiratory condition is better today. He is tolerating BiPAP with 90% FiO2. Physical Examination - Vital Signs Temperature: 98.2 F Blood Pressure: 130/79 Pulse: 85 Respirations: 31 Pulse Ox (%): 94 - Physical Exam General: Alert, In no apparent distress HEENT: Other (BiPAP) Neck: JVD not distended Respiratory: Other (Nonlabored breathing) Cardiovascular: No edema, Regular rate/rhythm Gastrointestinal: Soft and benign, Non-distended Musculoskeletal: No swelling Integumentary: No rashes Assessment And Plan - Current Problems (Diagnosis) (1) Pneumonia due to COVID-19 virus Current Visit: Yes Status: Acute (2) Acute respiratory failure with hypoxia Current Visit: Yes Status: Acute (3) Hyperlipidemia Current Visit: Yes Status: Acute (4) Hyperglycemia Current Visit: Yes Status: Acute (5) BPH (benign prostatic hyperplasia) Current Visit: Yes Status: Acute - Plan Continue IV Solu-Medrol 40 mg b.i.d. BiPAP and high-flow oxygen as needed. Status post Remdesivir. Status post 1 unit convalescent plasma. Considering 1 more unit convalescent plasma. I am told high titer plasma is not available for now. Continue Vitamin-D, vitamin-C, zinc and thiamine supplementation. Continue Eliquis On fluconazole for prophylaxis against fungal infection given prolonged steroid therapy. Blood sugar within acceptable range. Continue Novolin 70/30 and insulin sliding scale for glucose management.
[2020-06-27] MEDS: INSULIN -REGULAR HUMAN 50 UNIT/0.5 ML ML SQ SCH ×5 (00:04→23:46)
[2020-06-27] MEDS: LORazepam 2 MG/ML VIAL IV PRN ×3 (00:51→16:26)
[2020-06-27] MEDS: ACETAMINOPHEN 500 MG TAB PO PRN ×2 (01:04→20:17)
[2020-06-27 05:29] LABS: Absolute Lymphocytes (CBC) 0.7 K/uL (0.7-4.9); Basophils % 0.2 % (0-1.3); Hematocrit 45.8 % (39.6-49.0); Lymphocytes % 4.4 % (15.3-44.8); MPV 9.6 fL (7.6-11.3); RBC Red Blood Cell Count 5.11 M/uL (4.33-5.43)
[2020-06-27 05:58] LABS: Magnesium 2.6 mg/dL (1.8-2.4); Phosphorus 3.4 mg/dL (2.5-4.9)
[2020-06-27 06:31] LABS: BUN Blood Urea Nitrogen 33 mg/dL (7-18); Bicarbonate 31 mmol/L (21-32); Ferritin 1969.1 ng/mL (26-388); Glucose Level 143 mg/dL (74-106); Sodium Level 137 mmol/L (136-145)
[2020-06-27] MEDS: INSULIN 70/30 100 UNITS/ML SQ SCH ×2 (07:30→17:05)
[2020-06-27] MEDS: GLUCERNA SHAKE 237 ML CAN PO SCH ×3 (09:00→20:19)
[2020-06-27] MEDS: FLUCONAZOLE 100 MG TAB PO SCH (09:33)
[2020-06-27] MEDS: THIAMINE HCL 100 MG TABLET PO SCH ×2 (09:34→20:18)
[2020-06-27] MEDS: APIXABAN 5 MG TABLET PO SCH ×2 (09:34→21:00)
[2020-06-27] MEDS: VITAMIN D 1000 UNIT TAB PO SCH (09:34)
[2020-06-27] MEDS: ZINC SULFATE 220 MG CAP PO SCH (09:34)
[2020-06-27] MEDS: METHYLPREDNISOLONE 40 MG INJ IV SCH ×2 (09:34→20:18)
[2020-06-27] MEDS: FINASTERIDE 5 MG TAB PO SCH (09:34)
[2020-06-27] MEDS: FAMOTIDINE 20 MG TAB PO SCH ×2 (09:34→20:18)
[2020-06-27] MEDS: ASCORBIC ACID 500 MG TABLET PO SCH ×3 (09:35→20:18)
[2020-06-27] MEDS: SPIRONOLACTONE 25 MG TABLET PO SCH (09:35)
--- NOTE | 2020-06-27 10:22 | P.PN ---
Subjective Date of Service: 06/27/20 Chief Complaint: Respiratory failure No changes from yesterday. Patient has been BiPAP dependent on the last few days. Physical Examination - Vital Signs Temperature: 97.5 F Blood Pressure: 121/87 Pulse: 106 Respirations: 20 Pulse Ox (%): 94 - Physical Exam General: Alert, In no apparent distress Respiratory: Other (Nonlabored breathing.) Cardiovascular: No edema, Regular rate/rhythm Gastrointestinal: Soft and benign, Non-distended Musculoskeletal: No swelling Integumentary: No rashes Neurological: Other (No focal motor deficit.) Assessment And Plan - Current Problems (Diagnosis) (1) Pneumonia due to COVID-19 virus Current Visit: Yes Status: Acute (2) Acute respiratory failure with hypoxia Current Visit: Yes Status: Acute (3) Hyperlipidemia Current Visit: Yes Status: Acute (4) Hyperglycemia Current Visit: Yes Status: Acute (5) BPH (benign prostatic hyperplasia) Current Visit: Yes Status: Acute - Plan Continue IV Solu-Medrol 40 mg b.i.d. BiPAP and high-flow oxygen as needed. Status post Remdesivir. Status post 1 unit convalescent plasma. Considering 1 more unit convalescent plasma. I am told high titer plasma is not available for now. Continue Vitamin-D, vitamin-C, zinc and thiamine supplementation. Continue Eliquis On fluconazole for prophylaxis against fungal infection given prolonged steroid therapy. Blood sugar within acceptable range. Continue Novolin 70/30 and insulin sliding scale for glucose management.
--- NOTE | 2020-06-27 10:50 | P.PN ---
Subjective Date of Service: 06/27/20 Chief Complaint: Respiratory failure again no change she is requiring continuous BiPAP with high levels of oxygen Review of Systems Respiratory: Shortness of Breath Physical Examination - Vital Signs Temperature: 98.2 F Blood Pressure: 130/79 Pulse: 85 Respirations: 31 Pulse Ox (%): 94 - Physical Exam General: Alert, Moderate distress Respiratory: Clear to auscultation bilaterally, Diminished Assessment & Plan - Problems (Diagnosis) (1) Pneumonia due to COVID-19 virus Current Visit: Yes Status: Acute Plan: respiratory failure condition stable still requiring high concentrations of oxygen chest x-ray ordered no new labs although is CRP is less than 5 his ferritin remains in the thousands
[2020-06-27 11:11] LABS: Blood Morphology Comment NOT SEEN (NOT SEEN); Platelet Estimate ADEQ; White Blood Cell Scan OK (OK)
--- NOTE | 2020-06-27 12:25 | RAD REPORT ---
EXAM DESCRIPTION: [place] Single View06/27/2020 12:19 pm CLINICAL HISTORY: Respiratory failure COMPARISON: June 23 FINDINGS: Partial resolution in mild bilateral pulmonary opacities. Heart is normal size. Feeding tube enters the stomach. The tip is not included in the field of view IMPRESSION: Partial resolution in mild bilateral pulmonary opacities
[2020-06-27] MEDS: MORPHINE 2 MG/ML SYR IV PRN (14:58)
[2020-06-27] MEDS ORDERED: HYDROMORPHONE HCL 2 MG/ML inj IV PRN (20:05)
[2020-06-27 21:05] LABS: Blood Gas Oxyhemoglobin 93.6 % (94-97)
[2020-06-27 21:42] VITALS: O2SAT 95
[2020-06-28] MEDS ORDERED: DILTIAZEM HCL 125 MG/25 ML VIAL IVP ONE (00:07)
[2020-06-28] MEDS ORDERED: dilTIAZem HCL 25 MG/5 ML VIAL IV ONE (00:44)
[2020-06-28 00:55] VITALS: TEMP 96.9
[2020-06-28 00:59] VITALS: BP 178/102
--- NOTE | 2020-06-28 01:26 | P.PN ---
Date of Service: 06/28/20 called to see patient who was more obtunded, unresposive , increasing Bipap requirement for worsening hypoxia as well as new onset atrial flutter with 2-1 block. Patient was obtunded, requiring 18/14 with FiO2 of 100 on BiPAP. Heart rate elevated in the 130s. IV Cardizem giving the after patient went into asystole. He was started on cardiac resuscitation with chest compressions and doses of epinephrine given. Family/ was discuss with or requested patient not be intubated. Attempt at intubation was stopped CPR continued and subsequently patient made comfort care . Patient at 1235am
[2020-06-28] MEDS ORDERED: EPINEPHrine 1 MG/10 ML SYR IV ONE (10:43)
--- NOTE | 2020-06-28 17:08 | EKG ---
Test Date: 2020-06-28 Test Time: 00:02:29 [employer]: sign2 user MEASUREMENT RESULTS: Intervals: Rate: 131 AL: QRSD: 128 QT: 284 QTc: 419 [place]: P: 57 AL: QRS: -76 T: 77 INTERPRETIVE STATEMENTS: Atrial flutter with 2:1 AV conduction Left axis deviation Nonspecific intraventricular block Abnormal ECG Compared to ECG 06/09/2020 12:34:47 Sinus rhythm no longer present Prolonged QT interval no longer present Electronically Signed On 06-28-20 17:06:10 CABLE TOOL OPERATOR by Chicho Ferris
--- NOTE | 2020-06-29 12:16 | P.DS ---
Admission Date: 06/09/20 Discharge Date: 07/07/20 Disposition: Reason for Admission: Respiratory failure - Problems (1) Pneumonia due to COVID-19 virus Status: Acute (2) Acute respiratory failure with hypoxia Status: Acute (3) Hyperlipidemia Status: Acute (4) Hyperglycemia Status: Acute (5) BPH (benign prostatic hyperplasia) Status: Acute Brief History of Present Illness: 64-year-old gentleman with a history of hyperlipidemia was brought to the emergency department due to acute shortness of breath and low oxygen saturation. According to reports EMS found him with an oxygen saturation of 50%. They placed 100% non-rebreather mask on him and brought him to the ED. His chest x- ray and CTA thorax done in the emergency department demonstrate bilateral infiltrates consistent with COVID pneumonia. Patient tested positive for COVID 1 week ago. Patient placed on BiPAP therapy which improved his oxygen saturation to the 90s. He had mildly elevated lactic acid which resolved with IV hydration. Patient admitted for further management of COVID pneumonia. Hospital Course: Patient admitted to the ICU and treated aggressively for COVID pneumonia with hypoxia. COVID pneumonia was treated with IV steroids, Eliquis, Remdesivir and convalescent plasma. There was no improvement in his clinical symptoms. Patient continued to require high-flow oxygen and BiPAP with 100% FiO2 most days. He later developed atrial flutter. He subsequently developed asystole. ACLS was carried out. Family requested no intubation and patient subsequently put on comfort measures. He on 06/28/2020 at 12:48 am. Vital Signs/Physical Exam: Temp Pulse Resp BP Pulse Ox 96.9 F 160 H 10 L 178/102 H 95 06/28/20 00:00 06/28/20 00:07 06/28/20 00:00 06/28/20 00:07 06/28/20 00:00 Laboratory Data at Discharge: WBC Cancelled 06/28/20 05:00 Hgb Cancelled 06/28/20 05:00 Hct Cancelled 06/28/20 05:00 Plt Count Cancelled 06/28/20 05:00 PT 15.3 SECONDS (9.5-12.5) H 06/10/20 04:57 INR 1.33 06/10/20 04:57 APTT 29.1 SECONDS (24.3-36.9) 06/09/20 12:48 Sodium Cancelled 06/28/20 05:00 Potassium Cancelled 06/28/20 05:00 BUN Cancelled 06/28/20 05:00 Creatinine Cancelled 06/28/20 05:00 Glucose Cancelled 06/28/20 05:00 Phosphorus Cancelled 06/28/20 05:00 Magnesium Cancelled 06/28/20 05:00 Total Bilirubin 0.8 mg/dL (0.2-1.0) 06/22/20 04:52 AST 36 U/L (15-37) 06/22/20 04:52 ALT 83 U/L (12-78) H 06/22/20 04:52 Alkaline Phosphatase 89 U/L (45-117) 06/22/20 04:52 Triglycerides 80 mg/dL (<150) 06/10/20 04:57 Cholesterol 118 mg/dL (<200) 06/10/20 04:57 HDL Cholesterol 40 mg/dL (40-60) 06/10/20 04:57 Cholesterol/HDL Ratio 2.95 06/10/20 04:57 Amylase 35 U/L (25-115) 06/09/20 12:48 Lipase 51 U/L (73-393) L 06/09/20 12:48 Home Medications: Finasteride [Proscar] 5 mg PO DAILY 06/09/20 Rosuvastatin [Crestor] 10 mg PO BEDTIME 06/09/20 Followup: Unknown,U [Primary Care Provider] -
== END 2020-06-28 00:48 | disposition expired | DRG 871 ==
LOC: ER 12:22 → ERHOLD 17:40 → 3RD-ICU 18:24
PROVIDERS: ADMIT Internal Medicine Sleep Medicine; ATTEND Internal Medicine
PROC: 5A09557 Assistance with Respiratory Ventilation, Greater than 96 Consecutive Hours, Continuous Positive Airway Pressure (ICD-10-PCS; 2020-06-09)
PROC: XW13325 Transfusion of Convalescent Plasma (Nonautologous) into Peripheral Vein, Percutaneous Approach, New Technology Group 5 (ICD-10-PCS; principal; 2020-06-10)
PROC: 5A12012 Performance of Cardiac Output, Single, Manual (ICD-10-PCS; 2020-06-28)
DX: A41.89 Other specified sepsis (principal); U07.1 COVID-19; J12.89 Other viral pneumonia; J96.01 Acute respiratory failure with hypoxia; I48.92 Unspecified atrial flutter; E44.0 Moderate protein-calorie malnutrition; E78.5 Hyperlipidemia, unspecified; N40.0 Benign prostatic hyperplasia without lower urinary tract symptoms; R73.9 Hyperglycemia, unspecified; E66.3 Overweight; Z68.30 Body mass index [BMI] 30.0-30.9, adult; Z79.899 Other long term (current) drug therapy; Z87.891 Personal history of nicotine dependence; I46.9 Cardiac arrest, cause unspecified; Z68.26 Body mass index [BMI] 26.0-26.9, adult
CPT/HCPCS: 36415; 71045; 71275; 80048; 80053; 80061; 80076; 82150; 82550; 82553; 82565; 82728; 82805; 82947; 83036; 83605; 83690; 83735; 84100; 84145; 84484; 85025; 85610; 85730; 86140; 86900; 86901; 86927; 87040; 93005; 94002; 94003; 94660; 94760; 94762; 96365; 96368; 96375; 99285; J0171; J0696; J1170; J1200; J1815; J2270; J2405; J2920; J2930; J7030; J7050; Q9967